=== PATIENT | male | born 1930 | race Caucasian/White ===

== ENCOUNTER → 2016-04-30 | Outpatient (CLI) | payer MEDICARE ==
[~2016-04-30] MED LIST: CALCIUM 600 +1 EAC6 PO; CYCLOSPORINE PO; DELTASONE10 MG PO; DELTASONE20 MG PO; DELTASONE5 MG PO; FISH OIL 1,0001 EAC1 PO; LASIX40 MG PO; LIPITOR80 MG PO; MAG-OX-400(241400 MG PO; MULTI VITAMIN1 EACH PO; NACL TABS1 GM PO; NEORAL25 MG PO; NITROSTAT0.4 MG SL; NORVASC10 MG PO; RAMIPRIL2.5 MG PO; TENORMIN100 MG PO; TYLENOL EXTRA500 MG PO; ZAROXOLYN5 MG PO
[2016-04-30 12:46] LABS: PROTIME 10.3 SECONDS (9.6-11.1)
== END | disposition disaster alternative care site (69) ==
LOC: GOPD 04-27 16:00
PROVIDERS: Internal Medicine Nephrology
PROC: 0TB03ZX Excision of Right Kidney, Percutaneous Approach, Diagnostic (ICD-10-PCS; principal; 2016-04-30)
DX: R31.9 Hematuria, unspecified (principal); R80.9 Proteinuria, unspecified
CPT/HCPCS: J2001; J2250; J3010

== ENCOUNTER 2016-06-13 12:00 | Observation (INO) | payer MEDICARE ==
[~2016-06-13] VITALS: Ht 160 cm; Wt 79.5 kg
--- NOTE | ~2016-06-13 | HP ---
PATIENT'S NAME: DAYANA DE LA CRUZ [facility] AGE: 85 Y [address] ROOM: [address] [place], [place] [address] [facility] ADMIT DATE: 06/13/2016 History & Physical DISCHARGE DATE: FAMILY PHYSICIAN: Prakash Orosco MD ATTENDING PHYSICIAN: WON GARZA DATE OF SERVICE: CHIEF COMPLAINT: Hyponatremia acute on chronic (asymptomatic). HISTORY OF PRESENT ILLNESS: This is an 85-year-old male who is transferred from the office for admission for management of acute on chronic hyponatremia, which he is asymptomatic. The story is that the patient had a kidney biopsy performed in April 2016 and the patient was diagnosed with focal segmental glomerulosclerosis and followed by lion trainer Dr. Soto, is being treated with prednisone and cyclosporine. At that time, the kidney function has improved from 2.8 to 1.8 and the proteinuria has also decreased significantly. At that time, the patient was also on aggressive diuretic regimen initially and fluid status had improved significantly and the patient was on Lasix 20 mg p.o. b.i.d. The patient's weight at that time has also improved from 217 pounds down to 177 pounds. However, for the last few days, the patient has noticed a decrease in urine output, but he denies any worsening dyspnea and he occasionally felt some lightheadedness upon standing for the last few days, but he did not pass out. His oral intake has also been poor recently. On June 11, 2016, the patient went for followup with Dr. Soto in the office and blood pressure at that time was 130/70 and dropped down to 104/60 upon standing. Sodium at that time was 133 one month earlier before that visit and it dropped down to 120 on June 11, 2016 in the office visit. Labs from his PCP office back in June 08, 2016 was 122. The patient was asymptomatic at all times. On examination at the office on June 11, 2016, the patient appeared to be dry with dry oral mucosa and likely was probably a bit over diuresed in addition to poor oral intake with positive orthostatic vital sign. Therefore, the patient received 1 L of normal saline in office at that time and sodium was checked and dropped from 122 to 118 today. The patient remained asymptomatic. Because of the acute on chronic hyponatremia now down to 118, the patient was admitted to the hospital for further evaluation and management of acute on chronic asymptomatic hyponatremia. The patient denies any chest pain and occasionally has exertional dyspnea but has not worsened much lately. REVIEW OF SYSTEMS: As mentioned in the history of present illness. All other systems reviewed and negative except those mentioned in the history of present illness. PATIENT'S NAME: DAYANA DE LA CRUZ [facility] AGE: 85 Y [address] ROOM: [place] [address] [facility] ADMIT DATE: 06/13/2016 History & Physical DISCHARGE DATE: FAMILY PHYSICIAN: Prakash Orosco MD ATTENDING PHYSICIAN: WON GARZA PAST MEDICAL HISTORY: 1. Hypertension. 2. Hyperlipidemia. 3. Obesity. 4. Coronary artery disease status post 3-vessel open heart surgery bypass in 2006. 5. Childhood history of Bright disease. 6. 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 7. History of malignant colon cancer status post ostomy according to the records. 8. History of aortic valve stenosis. ALLERGIES: CELEBREX WHICH CAUSES DIARRHEA; ELAVIL UNKNOWN REACTION; HYDROCODONE CAUSES NAUSEA, VOMITING, AND DIZZINESS; AND DARVOCET UNKNOWN REACTION. HOME MEDICATIONS: Currently is being reconciled. SOCIAL HISTORY: The patient was a former cigarette smoker about one pack per day for 35 years but he quit in 1977. He denies any alcohol or any illegal drug use. PAST SURGICAL HISTORY: 1. Status post kidney biopsy in April 2016 diagnosed with focal segmental glomerulosclerosis. 2. Coronary artery disease status post open heart surgery bypass in 2006. 3. Status post cholecystectomy. 4. History of malignant neoplasm of colon status post ostomy according to the medical records. FAMILY HISTORY: Father had myocardial infarction at age 60s and the mother had diabetes and also myocardial infarction at age 80s. PHYSICAL EXAMINATION: VITAL SIGNS: At the time of my dictation, temperature 97.5, blood pressure 123/72, heart rate 95, respirations 18, saturation 94% on room air. GENERAL APPEARANCE: Alert and oriented x3, in no acute distress. HEENT: Pupils equally round and reactive to light. Extraocular muscles intact. Anicteric sclerae. Nasal turbinates are normal bilaterally. Moist oral mucosa. NECK: No JVD. CARDIOVASCULAR: Normal S1 and S2. Regular rate and rhythm. 2/6 intensity murmur is heard. He has a history of aortic stenosis. No rubs. No gallops. PATIENT'S NAME: DAYANA DE LA CRUZ [facility] AGE: 85 Y [address] ROOM: [id number] [place], [place] [address] LOCATION: [facility] ADMIT DATE: 06/13/2016 History & Physical DISCHARGE DATE: FAMILY PHYSICIAN: Prakash Orosco MD ATTENDING PHYSICIAN: WON GARZA RESPIRATORY: Clear. ABDOMEN: Obese, soft, nontender, nondistended, normal bowel sounds, no hepatosplenomegaly. EXTREMITIES: +1 bilateral pitting edema in bilateral lower extremities. NEUROLOGICAL: Grossly nonfocal. SKIN: No ulcer, no rash, no cyanosis. MUSCULOSKELETAL: No joint pain. No muscle pain. Range of motion intact. LABORATORY DATA: The basic metabolic panel will be drawn after the hypertonic solution is finished per Nephrology recommendation. Sodium 118 today in the office on June 13, 2016. CBC will be drawn together with the basic metabolic panel once the hypertonic solution is finished. Currently, urinalysis is performed, showed negative leukocyte, 2 to 5 white blood cells, negative nitrite, negative bacteria, urine osmolarity is 307, urine sodium 47. IMAGING STUDY: Troponins are none. ASSESSMENT AND PLAN: 1. Acute on chronic asymptomatic hyponatremia: Likely is hypovolemic hyponatremia likely secondary to over diuresis. I have already spoken to the lion trainer, Dr. Soto. The plan will be to start hypertonic solution 3% 50 mL/hour for 6 hours, and then before starting the solution, we will be checking a urine analysis and urine osmolarity with urine electrolytes before and after the hypertonic solution. After the hypertonic solution is finished, we will be checking a renal panel and osmolality and call Dr. Soto directly for results for further recommendation. We will be holding the prednisone and also the cyclosporine. We will have a total fluid restriction to less than 1 L per day. The patient is asymptomatic. The goal of the sodium should be around 125 to 126 after 3% NaCl. Further plan depends on clinical course and per Nephrology. We will be checking another renal panel in the morning as well. 2. Regarding his chronic kidney disease stage 3-4: Basic metabolic panel will be checked after the infusion of the hypertonic solution. 3. Regarding his hypertension: We will hold the medication for now which includes Lasix and metolazone as well as ramipril given that we are trying to hydrate the patient. Follow up with nephrology when to resume the diuretics and ACEI. 4. Regarding his coronary artery disease status post coronary artery bypass PATIENT'S NAME: DAYANA DE LA CRUZ [facility] AGE: 85 Y [address] ROOM: [id number] [place] [id number] [facility] ADMIT DATE: 06/13/2016 History & Physical DISCHARGE DATE: FAMILY PHYSICIAN: Prakash Orosco MD ATTENDING PHYSICIAN: WON GARZA grafting in 2006: No active issue. No chest pain. Continue Lipitor. 5. Regarding his chronic kidney disease stage 3-4 secondary to focal segmental glomerulosclerosis: We will be holding the prednisone and holding the cyclosporine per Nephrology until sodium and kidney function are checked and we will resume per lion trainer's decision. 6. The patient will be having cardiac diet and also fall precaution. 7. Deep vein thrombosis prophylaxis: The patient will be getting heparin subcu 3 times a day. Time spent on the day of admission 40 minutes including chart review, interviewing the patient, addressing all the questions the patient had, examining the patient, and going over the plan of care with the patient and the nurses. WON GARZA MD CC/modl /[id number]: [id number] T: [id number] HISTORY & PHYSICAL
--- NOTE | ~2016-06-13 | CON ---
PATIENT'S NAME: DAYANA DE LA CRUZ [facility] AGE: 85 Y [address] ROOM: [address] [place], [place] [address] LOCATION: [facility] ADMIT DATE: 06/13/2016 Consultation DISCHARGE DATE: FAMILY PHYSICIAN: Prakash Orosco MD ATTENDING PHYSICIAN: GEORGE GARZA DATE OF CONSULTATION: 06/13/2016 REFERRING PHYSICIAN: George Garza MD REASON FOR CONSULTATION: Acute on chronic hyponatremia. HISTORY OF PRESENT ILLNESS: An 85-year-old male with history of hypertension; hyperlipidemia; obesity; coronary artery disease, status post 3-vessel CABG in 2006; and a childhood history of Bright disease; and recently diagnosed FSGS, currently on steroid and cyclosporine, admitted with acute on chronic hyponatremia. He was recently started on treatment for his FSGS with steroid and CNI, and his kidney function has improved significantly from 2.8-1.8 and now 1.68, and proteinuria has decreased significantly since we have started treatment. The patient was also on aggressive diuretic regimen. Initially, fluid status improved significantly and was on Lasix 20 mg twice a day along with metolazone 10 daily for volume control. Since he saw me in May, his sodium has started to drop slowly. During the lab visit in May, his sodium was 133, which was 122 on the lab done with his PCP couple of weeks back. On Saturday, when he came to my clinic, his sodium was 120. The patient appears to be dry on clinical exam, and the hyponatremia was thought to be hypovolemic hyponatremia from over-diuresis. Diuretic was placed on hold, and the patient was started on IV fluids for 1 L infusion in our Infusion Clinic. The patient was also instructed to increase his p.o. intake to at least 60-80 ounce a day. The patient came to my clinic today with a routine lab test. Sodium on this renal panel was found to be 118. However, the patient is currently asymptomatic. He is currently alert and oriented x3. Denied any focal neurological deficit. No chest pain, shortness of breath. Leg edema has improved significantly since he has been started on diuretic regimen. Body weight has improved from 217 to 177 pounds on his home scale, although that is slightly different than our clinic body weight recordings. He has no urinary symptoms including dysuria, urgency, hesitancy, nocturia. Review of his medication list did not show any medication that might be contributing to his hyponatremia. Overall, he is asymptomatic, but with significant hyponatremia found on routine lab studies. REVIEW OF SYSTEMS: GENERAL: No fever. No chills or rigor. HEENT: No sore throat. No sinus congestion. CVS: No chest pain. No exertional shortness of breath. No leg swelling. RESPIRATORY: No shortness of breath. No cough. No wheezing. GENITOURINARY: No pain with urination. No increased frequency. No nocturia. GASTROINTESTINAL: No abdominal pain. No abdominal distention. No nausea or vomiting. NEUROLOGIC: No weakness. No seizures. SKIN: No rash. No itching. ALLERGIES: No seasonal allergy. No hayfever. ENDOCRINE: No heat intolerance. No cold intolerance. PSYCHIATRIC: No sadness. No crying spells. No history of panic attack. PATIENT'S NAME: DAYANA DE LA CRUZ [facility] AGE: 85 Y [address] ROOM: [place] [address] [facility] ADMIT DATE: 06/13/2016 Consultation DISCHARGE DATE: FAMILY PHYSICIAN: Prakash Orosco MD ATTENDING PHYSICIAN: GEORGE GARZA PAST MEDICAL HISTORY: 1. Hypertension. 2. Hyperlipidemia. 3. Obesity. 4. Coronary artery disease, status post CABG. 5. Recently diagnosed FSGS, currently on prednisone and cyclosporine. PAST SURGICAL HISTORY: CABG in 2006. FAMILY HISTORY: History of diabetes in mother, colon cancer in sister, and CVA in brother, paternal grandmother, and paternal aunt. SOCIAL HISTORY: Former smoker. Occasional alcohol abuse. No history of IV drug use. ALLERGIES: CELEBREX, ELAVIL, HYDROCODONE, AND DARVOCET-N. CURRENT MEDICATIONS: 1. Atorvastatin 80 mg p.o. daily. 2. Cyclosporine 100 mg twice daily. 3. Lasix 20 mg twice a day which is being on hold since Saturday. 4. Metolazone 5 mg daily. 5. Nitroglycerin 0.4 mg sublingually p.r.n. 6. Prednisone 80 mg daily. 7. Ramipril 2.5 mg p.o. daily. PHYSICAL EXAMINATION: VITALS SIGNS: Blood pressure 110/64, pulse 87, respiratory rate 18, afebrile, saturating at 97% to 98% on room air. GENERAL: Not in apparent distress. HEAD: Dry mucous membrane. Bilateral PERRLA EOMI. NECK: Flat JVP. No thyromegaly or lymphadenopathy. CVS: S1 and S2 normal, regular rate and rhythm. No murmur, rub, gallop. CHEST: Bilateral air entry equal. No wheeze or rales. ABDOMEN: Soft, nontender, nondistended. Bowel sounds present. EXTREMITIES: No cyanosis, clubbing, jaundice. No dependent edema. MUSCULOSKELETAL: No limitation of range of motion. SKIN: No pallor, cyanosis, icterus. STORE CLERK CHECKER: Alert and oriented x3. No gross findings. LABORATORY STUDIES: Renal panel done on June 13, 2016, sodium 118, glucose 180, BUN 43, calcium 8.4, potassium 3.4, creatinine 1.68, chloride 82, bicarbonate 30. Albumin 2.6. Phosphorus 2.2. UA done on June 11, 2016, shows specific gravity of 1.015, 1+ protein, trace blood, 3-5 rbc's, and 0-5 wbc's per high-power field. Negative glucose, ketones, bilirubin, nitrite, leukocyte esterase. Last CBC done in my clinic was in May 2016: WBC 7.1, hemoglobin 15.9, platelets 252.PATIENT'S NAME: DAYANA DE LA CRUZ [facility] AGE: 85 Y [address] ROOM: [place] [address] LOCATION: [facility] ADMIT DATE: 06/13/2016 Consultation DISCHARGE DATE: FAMILY PHYSICIAN: Prakash Orosco MD ATTENDING PHYSICIAN: GEORGE GARZA ASSESSMENT AND PLAN: 1. Hyponatremia, possibly hypovolemic hyponatremia secondary to over diuresis versus drug induced, however, no contributory drug found on that medication list other than MITZI inhibitor, prednisone, and cyclosporine all of which were started last month. The patient got 1 L of normal saline bolus on last clinic visit without any significant improvement and actually deterioration of sodium level. We would like to give 3% sodium chloride about 300 mL over 6 hours. We will check UA, urine osmolality, and urine lytes now, and after completion of the sodium chloride infusion, we will repeat the renal panel and osmolality after the sodium chloride infusion. We will place the patient on fluid restriction of 1.1 L per day for now. Once we have the urine studies, we will decide about how stringent the total fluid restriction should be. Importantly total fluid restriction includes anything which is liquid or anything that can melt into liquid. 2. Focal segmental glomerulosclerosis, on cyclosporine and steroids. In the context of severe hyponatremia, we will hold the cyclosporine and steroids for today, and we will restart it back tomorrow. The patient's creatinine is strongly improving since he has been started on medication so as the proteinuria. We would like to get a protein creatinine ratio today to establish the improvement since we have started treatment. 3. Chronic kidney disease stage 3. The patient's creatinine was 2.8 when he first saw me and now the creatinine is down to 1.68, although he has mentioned some decreased urine output over the weekend, but since we have stopped the diuretic and started to hydrate, the patient's urine output has improved significantly from there. However, we will strictly monitor the intake and output and daily standing weight. 4. Coronary artery disease, status post coronary artery bypass graft. Currently asymptomatic. We will continue nitroglycerine as p.r.n. basis along with atorvastatin 80 mg p.o. daily. Thank you for allowing me to participate in this patient's care. We will closely monitor the patient's progress along with you. BRITT BRAVO MD /modl /[id number] d: 06/13/[id number] t: 06/14/16 1239, CONSULTATION REPORT
--- NOTE | ~2016-06-13 | DS ---
PATIENT'S NAME: DAYANA DE LA CRUZ [facility] AGE: 85 Y [address] ROOM: [address] [place], [place] [address] LOCATION: [facility] ADMIT DATE: 06/13/2016 Discharge Summary DISCHARGE DATE: 06/14/2016 FAMILY PHYSICIAN: Prakash Orosco MD ATTENDING PHYSICIAN: George Starkey FINAL DIAGNOSES: 1. Hyponatremia, hypovolemic in nature. 2. Acute kidney injury on stage III chronic kidney disease. 3. Focal segmental glomerulosclerosis. 4. Essential hypertension. 5. Coronary artery disease. Please see the history and physical dictated by Dr. Starkey and consultation provided by Dr. Soto. LABORATORY DATA: On admission, sodium 126, at discharge 130; potassium on admission 2.9, at discharge 3.3; BUN on admission 49, at discharge 42; creatinine on admission 1.8, at discharge 1.4. Magnesium 1.8. White blood cell count , hematocrit 36.1, platelet count 149. Urinalysis showed 2 to 5 whites, 0 to 2 reds, 50 glucose, negative for protein. HOSPITAL COURSE: The patient was admitted from Dr. Soto's office with significant hyponatremia and acute kidney injury. He was admitted to the floor. He was placed on 3% saline. His renal function was adjusted. His doses of prednisone and cyclosporine for the focal glomerulosclerosis were adjusted. He was placed on a fluid restriction. He did respond nicely to IV fluids with a reduction in his creatinine and a rise in his sodium. He did require replacement of his potassium on admission. On the second hospital day, studies were better, but he remained hypokalemic and so he was given potassium replacement IV. He was restarted on his home medications, and it was felt that he was stable for discharge to home. He is discharged on 1.2 L per day fluid restriction. He is to follow up with Dr. Soto on 06/21/2016. MEDICATIONS: 1. Lipitor 80 mg daily. 2. Cyclosporine 75 mg twice daily, this is a dose change. 3. Lasix 20 mg daily. 4. Ramipril 2.5 mg daily. 5. Magnesium oxide 400 mg twice daily. 6. Prednisone 60 mg daily, this is a dose change. 7. Tylenol 1000 mg twice daily as needed. 8. Nitrostat 0.4 mg p.r.n. chest pain. 9. Multivitamin daily. 10. Fish oil 1000 mg daily. 11. Calcium with vitamin D 1 tab daily. PATIENT'S NAME: DAYANA DE LA CRUZ [facility] AGE: 85 Y [address] ROOM: [place] [address] [facility] AD[facility] DATE: 06/13/2016 Discharge Summary DISCHARGE DATE: 06/14/2016 FAMILY PHYSICIAN: Prakash Orosco MD ATTENDING PHYSICIAN: George Starkey This was discussed with he and his son and they did voice understanding. DALJIT MA MD LAW/modl /[id number] CC: MD Prakash Mata MD d: 06/15/16 0410 t: 06/15/16 1827, DISCHARGE SUMMARY
[~2016-06-13 12:00] MED LIST changes: -CYCLOSPORINE PO; -DELTASONE10 MG PO; -DELTASONE20 MG PO; -DELTASONE5 MG PO; -MAG-OX-400(241400 MG PO; -NACL TABS1 GM PO; -NEORAL25 MG PO; -RAMIPRIL2.5 MG PO
--- NOTE | 2016-06-13 13:51 | NUR ---
Pt is 85 y/o male admit for hyponatremia for hospitalist. Pt alert and oriented x 3. Allergies to Darvocet,hydrocodone,celebrex,elavil. Red and yellow bracelet. Hx htn,hypercholest,CABG,diverticulitis,arthritis,gerd, hiatal hernia. Pt resides at home with his . Pt went to DR office today and had lab work, sent here for admission. Pt originally saw his family Dr last Saturday and was found to be dehydrated and received some IV fluids and was sent home.
[2016-06-13] MEDS ORDERED: RAMIPRIL2.5 MG PO (14:19)
[2016-06-13] MEDS ORDERED: DELTASONE20 MG PO (14:20)
[2016-06-13] MEDS ORDERED: CYCLOSPORINE PO (14:20)
[2016-06-13 14:49] LABS: BILIRUBIN URINE NEGATIVE (NEGATIVE); BLOOD URINE 10 /UL (NEGATIVE); COLOR URINE YELLOW (YELLOW); GLUCOSE URINE NEGATIVE (NEGATIVE); KETONE URINE NEGATIVE (NEGATIVE); LEUKOCYTES URINE NEGATIVE /UL (NEGATIVE); NITRITE URINE NEGATIVE (NEGATIVE); PROTEIN URINE NEGATIVE (NEGATIVE); TURBIDITY URINE CLEAR (CLEAR); UROBILINOGEN URINE 1 mg/dL (NORMAL)
[2016-06-13 15:55] LABS: BACTERIA URINE NEGATIVE (NEGATIVE); EPITHELIAL URINE 0-2 #/HPF (NEGATIVE); RBC URINE RARE #/HPF (NEGATIVE)
--- NOTE | 2016-06-13 16:51 | NUR ---
A&O-FORGETFUL. 1PA GB/WALKER. LS CLEAR. CHRONIC N/T. BS ACTIVE BM 06/12. VD X3. NO C/O PAIN. SMALL EMESIS X1 PT CLAIMED HE CHOCKED ON [employer] ST CONSULT? IV TO L FA 3% SOLUTION X6 HOURS UNTIL 194 THEN RECHECK RENAL AND UA. RENAL/CARDIAC DIET. 1000ML FLUID RESTRICTION. L LEG ELEVATED SHOE HX OF FX'S INFECTION AND BONE LOSS TO THAT L ANKLE.
[2016-06-13 20:41] LABS: BASOPHIL % 0.1 %; HEMATOCRIT 36.1 % (33.0-50.0); HEMOGLOBIN 13.5 g/dL (11.0-16.0); IMMATURE GRANULOCYTE # 0.1 K/uL (0.0-0.3); IMMATURE GRANULOCYTE % 0.9 %; LYMPHOCYTE # 0.5 K/uL (0.8-4.0); LYMPHOCYTE % 3.9 %; MCH 32.4 pg (27.0-34.0); MCHC 37.4 gm/dL (32.0-36.5); MCV 86.6 fl (83.0-98.0); MONOCYTE # 1.4 K/uL (0.0-1.0); MONOCYTE % 10.4 %; MPV 10.4 fl (9.4-12.4); NEUTROPHIL # (ANC) 11.4 K/uL (1.4-9.0); NEUTROPHIL % 84.7 %; NRBC % 0 /100WBC (0-0.00); PLATELET COUNT 149 K/uL (150-450); RBC 4.17 M/uL (3.50-5.50); RDW-CV 11.7 % (11.9-14.6); WBC 13.5 K/uL (4.0-11.0)
[2016-06-13 20:51] LABS: ALBUMIN 2.3 gm/dL (3.5-5.0); ANION GAP 11.9 (10.0-19.0); CALCIUM 7.8 mg/dL (8.5-10.5); CREATININE 1.8 mg/dL (0.6-1.3); PHOSPHORUS 1.4 mg/dL (2.5-4.9); POTASSIUM 2.9 mMol/L (3.7-5.1)
[2016-06-13 21:52] LABS: BILIRUBIN URINE NEGATIVE (NEGATIVE); BLOOD URINE NEGATIVE /UL (NEGATIVE); COLOR URINE YELLOW (YELLOW); GLUCOSE URINE 50 mg/dL (NEGATIVE); KETONE URINE NEGATIVE (NEGATIVE); LEUKOCYTES URINE NEGATIVE /UL (NEGATIVE); NITRITE URINE NEGATIVE (NEGATIVE); PROTEIN URINE NEGATIVE (NEGATIVE); TURBIDITY URINE CLEAR (CLEAR); UROBILINOGEN URINE 1 mg/dL (NORMAL)
--- NOTE | 2016-06-14 04:43 | NUR ---
A/O. HR 70-90s. SBP 100-110. AFEBRILE. ROOM AIR. REPLACED NA IV. REPLACED KCL IV AND PO. DENIES PAIN. VOIDS PER URINAL. BMx1. 1A GAITBELT CANE.
[2016-06-14 08:58] LABS: ANION GAP 10.3 (10.0-19.0); CREATININE 1.4 mg/dL (0.6-1.3); MAGNESIUM 1.8 mg/dL (1.8-2.6); POTASSIUM 3.3 mMol/L (3.7-5.1)
[2016-06-14 08:59] LABS: PHOSPHORUS 1.5 mg/dL (2.5-4.9)
--- NOTE | 2016-06-14 12:00 | NUR ---
Introduced self and CM role to Eliezer. He tells me that he lives at home in [facility] with his and he is planning on returning there when medically cleared to do so. He does his own medicatios at home and gets them filled at [facility]. States he will continue to do this once he goes home. 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 I did review his chart and in doing so, noticed that he was observations status, so I did go over the MATTSON with him and he did sign it. I placed a copy in his chart as well as gave him a copy. He denied any questions about the MATTSON or his observation status. I let him know that I had talked with nursing before coming into the room and she tells me that he might go home later today or tomorrow. His doesn't drive, so he tells me that he will have one of his sons come and pick him up whenever it is time to dismiss. He denies any additional needs for HHC or DME. He uses a cane at baseline, it is up in his room now, and he tells me that is all he needs or uses at this point. No other questions, needs or concerns. Will continue to follow and assist.
[2016-06-14] MEDS ORDERED: NEORAL25 MG PO (15:54)
[2016-06-14] MEDS ORDERED: MAG-OX-400(241400 MG PO (16:18)
--- NOTE | 2016-06-14 17:14 | NUR ---
Shift summary: Patient alert and oriented x 3. VSS. PVC's. 1+ edema in bilateral lower extremities and bilateral upper extremities. Lungs clear and diminished. 40 meq IV potassium given today. 2 g IV mag sulfate given today. Cyclosporine and magnesium added to patients daily medications. Total intake of 1030 mL; total output of 1130 mL. Patient discharged to son's car at 1722.
--- NOTE | 2016-06-14 19:10 | NUR ---
Patient dismissed to home with son per personal car. Transferred to car by wheelchair by student nurse. RN reviewed dismissal instructions with patient. Patient verbalized understanding. Gave information about new medications.
[2016-06-28] MEDS ORDERED: NACL TABS1 GM PO (10:28)
== END 2016-06-14 17:25 | disposition disaster alternative care site (69) ==
LOC: GPCU 12:06
PROVIDERS: Internal Medicine Nephrology; ADMIT Internal Medicine
DX: E87.1 Hypo-osmolality and hyponatremia (principal); N17.9 Acute kidney failure, unspecified; N18.4 Chronic kidney disease, stage 4 (severe); I12.9 Hypertensive chronic kidney disease with stage 1 through stage 4 chronic kidney disease, or unspecified chronic kidney disease; I25.10 Atherosclerotic heart disease of native coronary artery without angina pectoris; E66.9 Obesity, unspecified; E78.5 Hyperlipidemia, unspecified; Z85.038 Personal history of other malignant neoplasm of large intestine; Z87.891 Personal history of nicotine dependence; Z95.1 Presence of aortocoronary bypass graft
CPT/HCPCS: G0378; G0379; J1644; J3475; J3480; J7050; J7502; J7512

== ENCOUNTER → 2016-06-20 | Outpatient (CLI) | payer MEDICARE ==
[~2016-06-20] MED LIST changes: +CYCLOSPORINE PO; +DELTASONE10 MG PO; +DELTASONE20 MG PO; +DELTASONE5 MG PO; +MAG-OX-400(241400 MG PO; +NACL TABS1 GM PO; +NEORAL25 MG PO; +RAMIPRIL2.5 MG PO
== END ==
LOC: LGSMG 15:24
DX: N18.4 Chronic kidney disease, stage 4 (severe) (principal); E87.1 Hypo-osmolality and hyponatremia; E86.1 Hypovolemia

== ENCOUNTER → 2016-07-04 | Outpatient (CLI) | payer MEDICARE | END | disposition disaster alternative care site (69) | LOC: GOPD 06-28 | DX: R93.8 Abnormal findings on diagnostic imaging of other specified body structures (principal); R91.8 Other nonspecific abnormal finding of lung field | CPT/HCPCS: J2250; J3010; J7030 ==

== ENCOUNTER → 2016-07-11 | Outpatient (CLI) | payer MEDICARE | END | disposition disaster alternative care site (69) | LOC: LGSMG 14:21 | DX: N18.4 Chronic kidney disease, stage 4 (severe) (principal); R80.9 Proteinuria, unspecified ==

== ENCOUNTER 2016-07-12 17:31 | Inpatient (IN) | payer MEDICARE ==
[~2016-07-12] VITALS: Ht 160 cm; Wt 84.4 kg
--- NOTE | ~2016-07-12 | CON ---
[facility] AGE: 85 Y [address] ROOM: [place] [address] LOCATION: GPCU ADMIT DATE: 07/12/2016 Consultation DISCHARGE DATE: FAMILY PHYSICIAN: Prakash Orosco MD ATTENDING PHYSICIAN: Alix Alvarado DATE OF CONSULTATION: 07/14/2016 REFERRING PHYSICIAN: TARA MARTI MD CARDIOLOGY CONSULTATION REASON FOR CARDIOLOGY CONSULTATION: Elevated cardiac enzymes. HISTORY OF PRESENT ILLNESS: This is an 85-year-old male, who is currently under the care of Dr. Alvarado as well as the Hospitalist Service. He has a history of chronic numbness and decreased sensation to his lower extremities and presented for evaluation after his leg weakness increased to the point that he could not walk. He was found to have severe lumbar spinal stenosis. He also has a previous history of chronic lower extremity edema; dyspnea on exertion; chronic kidney disease, stage 3; coronary artery disease with a history of CABG x3 vessels 10 years ago; and diabetes mellitus. Plan for this patient in the future is to have surgery for his spinal stenosis. He also has a history of fungal pneumonia, but overall his acute kidney injury that was present on admission seems to be improving. The patient denies chest pain. PAST MEDICAL HISTORY: As listed in the HPI. PAST SURGICAL HISTORY: 1. Kidney biopsy in 2016. 2. Coronary artery bypass grafting x3 vessels in 2006. 3. Cholecystectomy. 4. Ostomy placement after colon cancer surgery. 5. Pulmonary aspergillosis. FAMILY HISTORY: The patient's father had a history of myocardial infarction at the age of 60; and his mother had diabetes mellitus, and also had a myocardial infarction at the age of 80. SOCIAL HISTORY: The patient is a former cigarette smoker. He smoked 1 pack of cigarettes per day for a total of 35 years. He quit smoking in 1977. He denies history of PATIENT'S NAME: [facility] AGE: 85 Y [address] ROOM: [place] [address] LOCATION: GPCU ADMIT DATE: 07/12/2016 Consultation DISCHARGE DATE: FAMILY PHYSICIAN: Prakash Orosco MD ATTENDING PHYSICIAN: Alix Alvarado alcohol or illicit drug use. CURRENT MEDICATIONS: 1. Heparin IV per ACS protocol. 2. Aspirin 81 mg p.o. daily. 3. Deltasone 20 mg p.o. daily. 4. Fish oil 1000 mg p.o. daily. 5. Lasix 40 mg p.o. twice daily. 6. Lipitor 80 mg p.o. daily in the evening. 7. Mucomyst 1200 mg p.o. twice daily. 8. Magnesium oxide 400 mg p.o. twice daily. 9. Sodium chloride tablets 1 g p.o. twice daily. 10. Neoral 25 mg p.o. twice daily. 11. Prinivil 5 mg p.o. daily. 12. VFEND 200 mg p.o. twice daily. 13. Levemir 5 units subcutaneous daily in the evening. 14. NovoLog subcutaneous on an aggressive sliding scale per a.c. and at bedtime Accu-Cheks. MEDICATION ALLERGIES: Cinnamon causing upset stomach. REVIEW OF SYSTEMS: Pertinent positive review of systems was listed in the HPI. All other review of systems evaluated and negative. DIAGNOSTICS: CMS evaluation shows a sodium of 146, potassium 3.5, BUN of 43, creatinine 1.3, and glucose of 102. Lipid evaluation showed a total cholesterol of 83, triglycerides 53, HDL of 52, and an LDL of 21. Cardiac enzyme trend shows a CPK of 1055, then 702, then 105; CK-MB of 17.3, then 9.6, then less than 0.5; and troponin I of 1.01, then 0.84, and finally less than 0.04. PHYSICAL EXAMINATION: VITAL SIGNS: Temperature 98.3, pulse 105, blood pressure 112/60, and O2 saturation 94% on room air. The patient weighs 83 kg. SKIN: [place], warm, and dry. EYES: Sclerae clear. No xanthelasmas. ENT: Oral mucosa is pink and moist. No jugular venous distention noted. Does have a faint right-sided carotid bruit. CHEST: Respirations are even and unlabored. Lung sounds are clear to auscultation. HEART: Regular rate and rhythm. Normal S1 and S2. No murmurs, rubs, or gallops. ABDOMEN: Soft and nontender but obese. PATIENT'S NAME: DAYANA DE LA CRUZ [facility] AGE: 85 Y [address] ROOM: [id number] [place], [place] [address] [facility] AD[facility] DATE: 07/12/2016 Consultation DISCHARGE DATE: FAMILY PHYSICIAN: Prakash Orosco MD ATTENDING PHYSICIAN: Alix Alvarado EXTREMITIES: Peripheral pulses palpable. No clubbing or cyanosis noted. Does have mild edema present. PSYCHIATRIC: Alert and oriented. Mood and affect are appropriate. IMPRESSION AND PLAN: Per Dr. Reyes: 1. Jva-IY-[id number] myocardial infarction. His enzymes are currently trending down and we will plan to proceed with selective coronary angiography with possible percutaneous intervention. The goal will be to possibly avoid stenting so that the patient can proceed with his back surgery. Plan of care as well as risks and benefits of the procedure were discussed between Dr. Reyes and the patient, his and his son. We will continue to monitor, evaluate, and treat as appropriate. Thank you for this consult. Thank you for allowing [facility] to interact in the care of this patient. STEPHANIE MILLER APRN FOR ESTHER-MD GIAN JON/gregorio /[id number] d: 07/14/16 1442 t: 08/06/16 1250, CONSULTATION REPORT
--- NOTE | ~2016-07-12 | OR ---
PATIENT'S NAME: DAYANA DE LA CRUZ [facility] AGE: 85 Y [address] ROOM: [address] [address] [facility] ADMIT DATE: 07/12/2016 OR/Procedure Report DISCHARGE DATE: FAMILY PHYSICIAN: Prakash Orosco MD ATTENDING PHYSICIAN: Alix Abel SURGEON: Alix Abel MD START UP SPECIALIST: Rosalba Joy. DATE OF PROCEDURE: 07/16/2016 PREOPERATIVE DIAGNOSIS: Lower extremity weakness secondary to severe lumbar spinal stenosis. POSTOPERATIVE DIAGNOSIS: Lower extremity weakness secondary to severe lumbar spinal stenosis. PROCEDURE PERFORMED: Bilateral laminectomy at L3-4 and L4-5. ANESTHESIA: General. ANESTHESIA PROVIDER: Andrea Smith CRNA. HISTORY: The patient is an 85-year-old male who presented with lower extremity weakness of sudden onset. Imaging studies showed severe spinal stenosis. Surgery was recommended. The above procedure, benefits, and risks were discussed with the patient and with his consent, he was brought to the operating room for surgery. PROCEDURE IN DETAIL: In the operating room, the patient was placed in a supine position. Anesthesia was induced. He was intubated. He was rolled to a prone position on a Walker table taking care to protect all pressure points. The incision was marked out. Local anesthesia was infiltrated. The #10 blade was used to open the incision and deepen it to the fascial layer. The Bovie was used to open the fascia and to expose the tips of the spinous processes. The paraspinous muscles were dissected off the spinous processes and laminae of L3, L4, and L5. Self-retaining retractors were adjusted and hemostasis was achieved. Intraoperative x-ray was obtained to verify that we were at the desired levels. Laminectomy was then carried out at L3, L4, and L5. Leksell rongeur was used to remove the mid part of the lamina. Kerrison rongeur was then used to continue the laminectomy. The canal was exceedingly stenotic and working very carefully, the dura was decompressed. The nerve root exits were also inspected and decompressed. At the end of the procedure, the dura and nerve roots could be seen clearly without any compression. The area was irrigated and bone wax was used to wax the edges of the laminectomy. The incision was closed with appropriate suture materials. PATIENT'S NAME: DAYANA DE LA CRUZ [facility] AGE: 85 Y [address] ROOM: [place] [address] [facility] ADMIT DATE: 07/12/2016 OR/Procedure Report DISCHARGE DATE: FAMILY PHYSICIAN: Prakash Orosco MD ATTENDING PHYSICIAN: Alix Abel Nylon was used to close the skin. A sterile dressing was applied. The patient was then rolled back to supine position. His anesthesia was reversed. He was extubated and taken to the recovery room to complete his recovery. I was present at and performed every aspect of this procedure, assisted at some stages by operating room nurses. There were no apparent intraoperative complications. Swabs, needles, and instruments were all accounted for at the end of the case. Estimated blood loss was less than 500 mL and there was no reason for blood transfusion. The patient's prognosis is still uncertain at this time given the degree of leg weakness he had before surgery. Hopefully, the laminectomy will provide him the opportunity to start regaining some function in his lower extremity. A rehab consult will also be necessary. ALIX ABEL MD CNO/modl /[id number] d: 07/21/16 0249 t: 07/30/16 1704, OPERATIVE SUMMARY
--- NOTE | ~2016-07-12 | CON ---
PATIENT'S NAME: [facility] AGE: 85 Y [address] ROOM: [place] [address] LOCATION: [facility] ADMIT DATE: 07/12/2016 Consultation DISCHARGE DATE: 07/30/2016 FAMILY PHYSICIAN: Prakash Orosco MD ATTENDING PHYSICIAN: Alix Alvarado REFERRING PHYSICIAN: Myron Roche MD REFERRING: Hospitalist Service. REASON FOR REFERRAL: Pleural effusion. HISTORY OF PRESENT ILLNESS: The patient is an 85-year-old gentleman admitted with neurologic issues. 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 I do not have records regarding that, however. I was asked to see him for pleural effusions. PAST MEDICAL HISTORY: Please refer to the admission history and physical exam. FAMILY HISTORY: Noncontributory. SOCIAL HISTORY: Noncontributory. REVIEW OF SYSTEMS: Noncontributory. PHYSICAL EXAMINATION: GENERAL: Awake, alert. Appears chronically ill and weak. HEENT: Unremarkable. NECK: Normal. CHEST: Hyperinflated lungs. Diminished breath sounds. HEART: Regular rate and rhythm. ABDOMEN: Nontender. EXTREMITIES: No clubbing or edema. ASSESSMENT: Pleural effusions. PLAN: We will check a chest x-ray in the morning. If effusions are large or increasing in size, we will consider tap. Would like to get records regarding PATIENT'S NAME: [facility] AGE: 85 Y [address] ROOM: [place] [address] LOCATION: [facility] ADMIT DATE: 07/12/2016 Consultation DISCHARGE DATE: 07/30/2016 FAMILY PHYSICIAN: Prakash Orosco MD ATTENDING PHYSICIAN: Alix Alvarado the Aspergillus. MD SWETHA JIANG/modl /[id number] d: 07/29/16 0939 t: 06/13/17 0826, CONSULTATION REPORT
--- NOTE | ~2016-07-12 | OR ---
PATIENT'S NAME: DAYANA DE LA CRUZ [facility] AGE: 85 Y [address] ROOM: [address] [place], [place] [address] LOCATION: GICU ADMIT DATE: 07/12/2016 OR/Procedure Report DISCHARGE DATE: 07/30/2016 FAMILY PHYSICIAN: Prakash Orosco MD ATTENDING PHYSICIAN: Alix Alvarado SURGEON: Enoc Chawla CRNA CERTIFIED JUVENILE PROBATION OFFICER: DATE OF PROCEDURE: 07/30/2016 PROCEDURE PERFORMED: Emergent intubation. DESCRIPTION OF PROCEDURE: I was called to a Code Blue situation on the patient. When I arrived to the room, the code team was present. There was no CPR being performed secondary to a positive femoral pulse. There was irregular labored breathing with small tidal volumes. The patient was unresponsive. The patient was being bagged mask valve per the attending physician when I arrived. When I went to the head of the bed, I noticed a large amount of emesis and green bile-like liquid coming from the patient's mouth and then all over the bed and the floor. I then suctioned the patient with a Yankauer, about 200 mL of the same green bile-colored fluid, and then I used a #3 MAC blade and DL the patient even though he was attempting spontaneous breathing. He was unresponsive, and so I did notice a large amount of that green fluid also percolating/gurgling in the trachea, and so I placed the Yankauer tube in the trachea and then also sucked approximately 100 mL of that green fluid from the lungs. I then placed an 8.0 endotracheal tube that was positive for end-tidal CO2 per respiratory therapy and bilateral chest rise with bilateral breath sounds present and a clear visualization of endotracheal tube placement. The patient was bag-mask assisted. There still was no sat at that point, and from the point of my intubation on, code status went as records show. ENOC CHAWLA CRNA TCV/modl /[id number] d: 07/30/161814 t: 05/31/17 1040, OPERATIVE SUMMARY
--- NOTE | ~2016-07-12 | ECHO ---
Transthoracic Echocardiography Report (TTE) Demographics Patient Name DAYANA DE LA CRUZ Date of Study 07/13/2016 L Patient Number [id number] Visit Number [id number] Date of 1930 Room Number [address] Gender Male Number Age 85 year(s) Referring Jaky Ny MD Behavioral Health Associate Kristen Anderson [facility] Physician Physician Interpreting Amy Blair Solid Waste Manager Physician Corina DING Supervising Ordering MD/MLP Physician Nurse Stress Neurosurgical Nurse Practitioner Conclusions Contractility Score Summary Summary Mild concentric left ventricular hypertrophy. Diastolic assessment reveals Grade I diastolic dysfunction. Septal hypokinesis Apical hypokinesis. Estimated EF: 55-60 %. Possible LVOT obstruction mildly elevated LVOT velocity The aortic valve is moderately sclerotic. Mild aortic stenosis. There is trivial aortic regurgitation. Ascending aorta is mildly dilated. IVC is mildly dilated. Blunted response to sniffing. Procedure Type of Study TTE procedure:2D Echocardiogram. Procedure Date Date: 07/13/2016 Start: 10:29 AM Study Location: Inpatient Portable Technical Quality: Adequate visualization Indications:Elevated Troponin. Appropriate Use Criteria: 9 Patient Status: Routine HR: 111 bpm BP: 126/60 mmHg M-Mode/2D Measurements LV Diastolic Dimension: 4.14 cm LV Systolic Dimension: 2.53 cm LV Septum Diastolic: 1.07 cm LV PW Diastolic: 1.27 cm AO Root Dimension: 2.4 cm Cardiac Output: 14.66 l/min AV Cusp Separation: 1.1 cm RV Diastolic Dimension: 3.48 cm LA volume: 68 ml LVOT: 2.3 cm RV Base: 3.87 cm LVOT VTI: 31.8 cm RV Mid: 3.24 cm LV Stroke volume: 132.05 ml Doppler Measurements AV Peak Velocity: 2.43 m/s MV Peak E-Wave: 0.91 m/s AV Peak Gradient: 23.62 mmHg MV Peak A-Wave: 1.74 m/s AV Mean Gradient: 14 mmHg MV E/A Ratio: 0.52 LVOT Peak Velocity: 1.7 m/s MV P1/2t: 75 msec TR Gradient:12.25 mmHg PV Peak Velocity: 1.27 m/s Estimated RAP:10 mmHg PV Peak Gradient: 6.45 mmHg Estimated RVSP: 22 mmHg Estimated PASP: 22.25 mmHg E' Septal Velocity: 0.05 m/s A' Septal Velocity: 0.09 m/s E' Lateral Velocity: 0.06 m/s A' Lateral Velocity: 0.11 m/s Findings Left Ventricle Mild concentric left ventricular hypertrophy. Diastolic assessment reveals Grade I diastolic dysfunction. Septal hypokinesis Apical hypokinesis. Estimated EF: 55-60 %. Right Ventricle Normal right ventricle structure and function. Left Atrium The left atrium is moderately dilated. Right Atrium Normal right atrial size. Mitral Valve Mild mitral annular calcification. Aortic Valve Possible LVOT obstruction mildly elevated LVOT velocity The aortic valve is moderately sclerotic. Mild aortic stenosis. There is trivial aortic regurgitation. Tricuspid Valve Mild tricuspid regurgitation by color Doppler. Pulmonic Valve Pulmonic valve is not well seen. Pericardial Effusion No evidence of pericardial effusion. Miscellaneous Ascending aorta is mildly dilated. IVC is mildly dilated. Blunted response to sniffing. Signature dtt: Nolberto Reyes dtd: 07/13/16 1029 Physician Self Edit
--- NOTE | ~2016-07-12 | CON ---
PATIENT'S NAME: [facility] AGE: 85 Y [address] ROOM: [place] [address] LOCATION: GICU ADMIT DATE: 07/12/2016 Consultation DISCHARGE DATE: 07/30/2016 FAMILY PHYSICIAN: Prakash Orosco MD ATTENDING PHYSICIAN: Alix Alvarado DATE OF CONSULTATION: 07/28/2016 REFERRING PHYSICIAN: Myron Roche MD REFERRING: Hospitalist Service. REASON FOR REFERRAL: Pleural effusions. HISTORY OF PRESENT ILLNESS: The patient is an 85-year-old with a complicated history. He was admitted with weakness. He also has a history of chronic renal insufficiency. He was also diagnosed with pulmonary aspergillosis by transthoracic needle biopsy of a lung mass. He was found to have small bilateral pleural effusions. PAST MEDICAL HISTORY: Refer to the admission history and physical exam. FAMILY HISTORY: Noncontributory. SOCIAL HISTORY: Lives independently. REVIEW OF SYSTEMS: As per HPI. PHYSICAL EXAMINATION: GENERAL: An elderly, chronically ill-appearing gentleman. ENT: Unremarkable. NECK: Normal. CHEST: Hyperinflated. LUNGS: Expiratory rhonchi heard. HEART: Regular. ABDOMEN: Distended. Tympanitic. Decreased bowel sounds. EXTREMITIES: No clubbing or edema. ASSESSMENT: Pleural effusions which by report are small to moderate. Recent history of PATIENT'S NAME: [facility] AGE: 85 Y [address] ROOM: [place] [address] LOCATION: [facility] ADMIT DATE: 07/12/2016 Consultation DISCHARGE DATE: 07/30/2016 FAMILY PHYSICIAN: Prakash Orosco MD ATTENDING PHYSICIAN: Alix Alvarado pulmonary aspergillosis although I have no details regarding that diagnosis and whether it has been treated or not. PLAN: We will check a chest x-ray in the morning and re-evaluate the effusions. We will try to obtain records regarding the pulmonary aspergillosis and whether it is being actively treated. MD SWETHA JIANG/modl /[id number] d: 07/30/16 1057 t: 08/14/16 0829, CONSULTATION REPORT
--- NOTE | ~2016-07-12 | ER ---
PATIENT'S NAME: DAYANA DE LA CRUZ [facility] AGE: 85 Y [address] ROOM: [address] [address] LOCATION: [facility] ADMIT DATE: 07/12/2016 ER/Outpatient Report DISCHARGE DATE: FAMILY PHYSICIAN: Prakash Orosco MD ATTENDING PHYSICIAN: Alix Alvarado TIME OF ADMIT: 1731 hours. The patient was initially seen by Dr. Gonzalez. HISTORY OF PRESENT ILLNESS: The patient was being evaluated for sudden onset of lower extremity weakness. Dr. Gonzalez checked him out with me with MRIs pending. MRI revealed moderate-to- severe spinal stenosis of the cervical and lumbar spine. Dr. Alvarado was called, reviewed the MRIs, felt confident that the anatomic lesions on the MRI were the cause of the patient's weakness and made arrangements to admit the patient. Other laboratory abnormalities included elevated troponin, markedly elevated BNP, and elevated blood sugar. The hospitalist was consulted to assist in the medical management. ASSESSMENT: 1. Acute lower extremity weakness secondary to his severe central canal stenosis. 2. Elevated troponin of uncertain significance. 3. Hyperglycemia. PLAN: Admit for neurosurgical management. ZANA PAGAN MD JDB/gregorio /[id number] d: 07/13/16509 t: 07/15/16 0600, OUTPATIENT REPORT
--- NOTE | ~2016-07-12 | PUL ---
PATIENT'S NAME: DAYANA DE LA CRUZ [facility] AGE: 85 Y [address] ROOM: [address] [place], [place] [address] LOCATION: GICU ADMIT DATE: 07/12/2016 Pulmonary DISCHARGE DATE: 07/30/2016 FAMILY PHYSICIAN: Prakash Orosco MD ATTENDING PHYSICIAN: Alix Alvarado ACTIVITY: Bedside Spirometry DATE OF PROCEDURE: July 27, 2016 REASON FOR EXAM: Pre-surgical evaluation RESULTS: Spirometry reveals decreased FVC at 0.85 which is 32% predicted, decreased FEV1 at 0.64 at 35% predicted, normal FEV1/FVC ratio at 74.9, the patient had very poor effort these numbers should be taken in consideration. PHYSICIAN INTERPRETATION: Spirometry suggestive of restrictive pattern but the patient was had very poor effort and the flow volume loop was not completely complete so I would take these numbers and consideration. Thank you for allowing me to participate in this patient. MD TYRESE HO/magda /[id number] dtt: 09/05/16 1007 Marichuy George S. dtd: 08/21/16 1438
--- NOTE | ~2016-07-12 | CATH ---
Cardiac Diagnostic Report Demographics Patient Name JONO ANNE Gender Male L Date of 1930 Age 85 year(s) Patient Number [id number] Date of Study 07/14/2016 Visit Number [id number] Room Number G6[address] [place] [id number] Ht 160.02 cm Wt 83.46 kg Referring Ana Luisa Cobos MD Primary Physician Physician Melchor Cartagena Performing Efstratiou Secondary Physician Physician Johnnie Arriaga MD Diagnostic Efstratiou Assisting Physician Physician Johnnie Arriaga MD Interventional Physician Emissions Inspector Physician Findings and Conclusions Diagnostic Findings and Conclusion Grafts to Circ and LAD are patient. RCA is [employer] and has collaterals. Flow from LAD and Circ - Possible source of enzyme release. Very torturous thoracic aorta and left subclavian. Incidental finding of 75% ostial left vertebral. Mild pulmonary HTN. Diagnostic Recommendations No need for PCI. Safe to proceed with back surgery. Procedure Description The patient was brought to the diagnostic cardiac catheterization-EP laboratory in the fasting, non-sedated state. Informed consent was obtained in the written and verbal form after the risks and benefits were explained. The patient had no further questions and agreed to proceed. The planned puncture-incision site(s) were shaved and prepped with ChloraPrep and draped in the usual sterile manner. Conscious sedation, supplemental oxygen, and pain control medications were delivered by a registered nurse under physician guidance. Surface ECG rhythm, blood pressure measurement, and pulse oximetry were monitored throughout the procedure. Arterial access. The access site was infiltrated with lidocaine. The vessel was entered with the Seldinger technique. A sheath was advanced into the vessel and used for catheter placement. Selective left coronary angiography. A catheter was advanced into the left coronary vessel ostium under Fluoroscopic guidance. Contrast was injected by hand. Images were obtained in multiple projections. Selective right coronary angiography. A catheter was advanced into the right coronary vessel ostium under fluoroscopic guidance. Contrast was injected by hand. Images were obtained in multiple projections. Selective SERNA graft angiography. A catheter was advanced into the left internal mammary graft ostium under fluoroscopic guidance. Contrast was injected by hand. Images were obtained in multiple projections. Selective SVG angiography. A catheter was advanced into the graft proximal anastomosis under fluoroscopic guidance. Contrast was injected by hand. Images were obtained in multiple projections. Left heart catheterization. A catheter was advanced across the aortic valve to the left ventricle under fluoroscopic guidance. Resting hemodynamics were obtained. Arterial artery hemostasis. Hemostasis was achieved. The patient was transferred to a regular nursing floor via cart accompanied by a nurse. The patient left the laboratory in stable condition. Diagnostic Cath Status: Urgent Procedure Procedure Type Diagnostic procedure:Angiography:, Right and Left Heart Cath, Coronary Angios w/Grafts Indications: Non-ST elevation HI. The procedure was explained in detail to the patient. Risks, complications and alternative treatments were reviewed. Written consent was obtained. Medications Reviewed with Patient prior to Procedure. Angiographic Findings Dominance: Right Cardiac Arteries and Lesion Findings LMCA: Normal (0% Stenosis). LAD: Abnormal.The 1st Diag appears abnormal. Lesion on Mid LAD: 95% stenosis . Lesion on 1st Diag: Ostial.80% stenosis . LCx: Abnormal.The 1st ob Elizabeth appears abnormal. The 2nd ob Elizabeth appears abnormal. Lesion on Mid CX: 80% stenosis . Lesion on 1st Ob Elizabeth% stenosis . Lesion on 2nd Ob Elizabeth% stenosis . RCA: Abnormal. Lesion on Mid RCA: 100% stenosis . Cardiac Grafts - There is a Vein graft that originates at the Aorta Left and attaches to the 1st Ob Elizabeth (The SVG graft is patent.). - There is a Vein graft that originates at the Aorta Left and attaches to the 2nd Ob Elizabeth (The SVG graft is patent.). - There is a SERNA graft that originates at the SERNA and attaches to the Mid LAD (The SERNA graft is patent.). Coronary Tree Procedure Data Procedure Date Date: 07/14/2016Start: 10:34 AMEnd: 11:47 AM Entry Locations - Retrograde Percutaneous access was performed through the Right Femoral artery (Primary location). A 6 Fr sheath was inserted. Hemostasis was successfully obtained using Angio-Seal STS PLUS (St. Ruben). Closure Comments: Dr. Ashton placement. - Antegrade Percutaneous access was performed through the Right Femoral vein. A 6 Fr sheath was inserted. Hemostasis was successfully obtained using Manual Compression. Closure Comments: regis. - Retrograde Percutaneous access was performed through the Left Radial artery. A 6 Fr sheath was inserted. Unsuccessful closure attempt was performed using: an R band. Hemostasis was successfully obtained using Mechanical Compression. Closure Comments: Mckay placement 13 ml air in band. Procedure Medications Order and Administration + + +-------+ + !Time !Medication !Dosage !Route ! + + +-------+ + !07/14/2016 !D5W 1000ml w/ 150 mEq Sodium Bicarb !83 !I.V. drip ! !10:40 AM ! !ml/hr ! ! + + +-------+ + !07/14/2016 !PAE Radial Cocktail: Heparin 5000 units, ! !I.A. ! !11:15 AM !Nitroglycerin 200mcg, Verapamil 3 mg ! ! ! ! !(ACC_3) ! ! ! + + +-------+ + Devices Used - A6 Fr. Balloon Wedge Catheterwas used for:Right heart cath. - A6 Fr. BS JL 4 Diag. Catheter. - A6 Fr. BS JR 4 Diag. Catheterwas used for:Right coronary angiography. - A5FR LCB DIAGNOSTIC CATH ([id number])was used for:SVG. - A6 Fr. BS JR 4 Diag. Catheterwas used for:SERNA.Unable to cannulate the vessel. - A6 Fr. JJ 3DRC Diag. Catheterwas used for:SERNA. - A6 Fr. BS JR 4 Diag. Catheterwas used for:SERNA.Unable to cannulate the vessel. Comments: thru left wrist. - A6 Fr. BS IMT Diag. Catheterwas used for:SERNA. Contrast Material - Isovue 22117 ml Fluoroscopy Time: Diagnostic: 17:06 minutes. Total: 17:06 minutes. Fluoroscopy Dose: Diagnostic: 1160 mGy. Total: 1160 mGy. Estimated Blood Loss: 25 ml. Medical History Performed Procedures and Imaging Results - No ACC stress or imaging studies were performed. Allergies - Other:(cinnamon). Risk Factors The patient risk factors include:prior CABG;hypertension, family history of premature CAD, last creatinine: 1.3 mg/dl, creatinine clearance: 49.04 ml/min, dyslipidemia and former tobacco use. Admission Data Admission Date: 07/12/2016 Admission Time: 10:27 PM Admit Source: Emergency department Insurance Payors: Medicare. Admission Medications + +------+------+ + + + + !Medication !Dosage!Times !Last !Last !Administered !Comments ! ! ! !Per !Delivery !Delivery ! ! ! ! ! !Day !Date !Time ! ! ! + +------+------+ + + + + !MITZI ! ! ! ! !Yes ! ! !Inhibitor ! ! ! ! ! ! ! !(any) ! ! ! ! ! ! ! + +------+------+ + + + + !Statin (any)! ! ! ! !Yes ! ! + +------+------+ + + + + Clinical Evaluation Leading to Procedure - The patient's CAD presentation was assessed as: Non-STEMI. - The patient's anginal syndrome during the past two weeks was assessed as: Class IV according to the [place] Cardiovascular Society Classification System (CCS). - The patient has been in a state of heart failure within the past two weeks. - The patient's heart failure status was assessed as NYHA Class II. 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 Snapshots Hemodynamics Condition: Rest O2 Consumption: Estimated: 220.78Heart Rate: 82 bpm Oxygen Saturation +--------+-----+----+ +---+ + !Location!pCO2 !pO2 !% Saturation !Hgb!O2 Content ! +--------+-----+----+ +---+ + !PA ! ! !55.7 ! ! ! +--------+-----+----+ +---+ + !AO ! ! !89.8 ! ! ! +--------+-----+----+ +---+ + !RA ! ! !55.6 ! ! ! +--------+-----+----+ +---+ + Pressures (mmHg) +-----+ + !Site !Pressure ! +-----+ + !RA !10/5 (1) ! +-----+ + !RV !34/0 ,5 ! +-----+ + !PCW !18/21 (16) ! +-----+ + !PA !37/10 (20) ! +-----+ + !AO !85/45 (62) ! +-----+ + !AO !96/53 (70) ! +-----+ + Cardiac Output +------+ + + + !Method!CO (l/min) !CI (l/min/m2) !SV (ml) ! +------+ + + + !Isabell !5.06 !2.7 !61.68 ! +------+ + + + Shunts Oxygen Values O2 Capacity 127.84 O2 Consumption 220.78 Flows (l/min) Qs 5.05 Qe/Qp 1 Qp 5.06 Qp/Qs 1 Qe 5.05 Vascular Resistance (dynes x sec x cm-5) + +-----+-----+----+----+---------+-------+ !CO method !TSVR !SVR !TPVR!PVR !TPVR/TSVR!PVR/SVR! + +-----+-----+----+----+---------+-------+ !Isabell !13.83!13.56!3.87!0.75!0.28 !0.06 ! + +-----+-----+----+----+---------+-------+ !Qp or Qs !13.86!13.58!3.87!0.75!0.28 !0.06 ! + +-----+-----+----+----+---------+-------+ Signatures dtt: Nolberto Reyes dtd: 07/14/16 1034 Physician Self Edit
--- NOTE | ~2016-07-12 | HP ---
PATIENT'S NAME: ELIEZER MCCOLLUM [facility] AGE: 85 Y [address] ROOM: [place] [address] LOCATION: GPCU ADMIT DATE: 07/12/2016 History & Physical DISCHARGE DATE: FAMILY PHYSICIAN: Prakash Orosco MD ATTENDING PHYSICIAN: Alix Alvarado DATE OF SERVICE: 07/12/2016 PATIENT IDENTIFICATION: Eliezer Mccollum is an 85-year-old male. PRESENTING COMPLAINT: Difficulty walking as a result of leg weakness. HISTORY OF PRESENT ILLNESS: The patient says "I lost control of my legs today." He had fallen three days ago in bathroom and had a hard time getting back up. On the day of admission, he was leaning against the wall and would have fallen if the wall had not been there. He also found he could not move his legs. He has always had a little bit of back pain for years, but the weakness is fairly recent. In April this year, he is started walking with a cane and then progressed to the point he was walking with a walker. The patient was brought to the emergency room on account of the fall and had an MRI of the lumbar spine done. MRI showed spinal stenosis and I was consulted to see the patient. The patient was recently evaluated for fungal pneumonia by infectious diseases, people. There is a note dated July 11, 2016 and patient was started on voriconazole 200 mg b.i.d. for the fungal infection. OTHER PAST MEDICAL HISTORY: Includes a three vessel coronary artery bypass. CURRENT MEDICATIONS: Documented on chart. ALLERGIES: DOCUMENTED ON THE CHART. FAMILY HISTORY: There is no family history relevant to present problems. PATIENT'S NAME: ELIEZER MCCOLLUM [facility] AGE: 85 Y [address] ROOM: [place] [address] LOCATION: GPCU ADMIT DATE: 07/12/2016 History & Physical DISCHARGE DATE: FAMILY PHYSICIAN: Prakash Orosco MD ATTENDING PHYSICIAN: Alix Alvarado SOCIAL HISTORY: The patient is . He is a nonsmoker. REVIEW OF SYSTEMS: A 10-point review of systems was carried out. The only abnormal finding was as described in the history of present illness. PHYSICAL EXAMINATION: GENERAL: On examination, the patient is an elderly male who was found lying on a gurney in the ER. VITAL SIGNS: Stable. NEUROLOGICAL: The patient is alert and able to follow commands. His speech is clear. Cranial nerves, no deficits seen. Motor examination, the patient has normal strength in his upper extremities. In his lower extremities, he had weakness as described below. Hip flexors where less than 3 on the right side and barely 3 on the left side. Quadriceps are 5 bilaterally. Dorsiflexors 5 on the right, 4 on the left. Plantar flexors 5 on the right, 3 on the left. The patient has had prior ankle surgery, this could influence the ankle movement hence the week dorsiflexor on the left side. EXTREMITIES: The patient has bilateral pitting edema. The edema extends up to his knee level. Gait not tested. RESPIRATORY: The patient is short of breath at bedside. As mentioned earlier. 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 CARDIOVASCULAR SYSTEM: His heart sounds are present on both sides. HEAD: His head is atraumatic. EYES AND EARS: No evidence of trauma. SKIN: No skin rashes or skin masses. REVIEW OF IMAGING STUDIES: The patient has had lumbar spine MRI performed. The MRI shows severe central canal stenosis at the L3-4 level. There is at least a moderate stenosis also at L4-5. Cervical spine MRI performed July 12, 2016 documented multilevel degenerative changes worse at C5-6 with moderate to severe central canal and bilateral foraminal stenosis. Thoracic spine MRI, mild degenerative changes with no significant canal or neural foraminal stenosis. ASSESSMENT: An 85-year-old male with bilateral lower extremity weakness. MRI scan shows severe spinal stenosis. The patient also has bilateral pitting pedal edema and shortness of breath, concerning for heart failure. MEDICAL DECISION MAKING: The patient had been admitted to the hospital. He will likely need decompression of his lumbar spine for the stenosis. He is being seen by PATIENT'S NAME: ELIEZER MCCOLLUM [facility] AGE: 85 Y [address] ROOM: [address] [place], [place] [address] [facility] ADMIT DATE: 07/12/2016 History & Physical DISCHARGE DATE: FAMILY PHYSICIAN: Prakash Orosco MD ATTENDING PHYSICIAN: Alix Alvarado internal medicine for his shortness of breath, and will also be seen by Pulmonology for the fungal infection. When the patient is stable from the medical standpoint, I will schedule his surgery. During the examination in the emergency room, the leg weakness actually showed some improvement to the point that the patient was now able to maintain some antigravity strength in his legs, but he was still quite weak. I will follow the patient while he is in hospital. MD SHAWANDA SMITH/modl /[id number] D: [id number] T: [id number] HISTORY & PHYSICAL
--- NOTE | ~2016-07-12 | CON ---
PATIENT'S NAME: DAYANA DE LA CRUZ [facility] AGE: 85 Y [address] 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 HISTORY OF PRESENT ILLNESS: This patient is an 85-year-old gentleman was seen by Dr. Loyola in the clinic on the July, for fungal pneumonia. 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 voriconazole 200 mg p.o. twice a day. The patient had a history of FSGS and kidney issues started on cyclosporine and prednisone then the patient had developed some hemoptysis just blood-streaked like sputum. CT scan done showed masslike consolidation. Due to concern for malignancy, underwent CT-guided biopsies, came back with fungus, the patient does not have any fever. Then, the patient came to the hospital, because of difficulty walking and leg weakness and seen by Dr. Alvarado and found to have spinal stenosis and status post L3-4, L4-5 lumbar laminectomy, which was done on July. Because of the fungal pneumonia, ID consultation was requested again, noted that, the patient did not fill the prescription as outpatient and voriconazole was actually started during this hospitalization, which was started on July, and the patient tolerated the medicine and also noted that several labs was done as outpatient showed that serum aspergillus galactomannan was elevated to 4.44, normal is less than 0.5. Also, Fungitell was done at that time, on 11 of July is greater than 500. Also, noted that on the 11 of July, the patient had elevated AST, ALT, which was unknown reason, and then which was repeated and today AST is 133, ALT 105, bilirubin and alkaline phosphatase is okay, and is actually AST, ALT is trending down. The patient still complains of some back pain; also, complains some cough and cough of mucus too, but no fever. PAST MEDICAL HISTORY: FSGS, kidney issue, currently on cyclosporine and prednisone, the dose was decreased to 25 mg, cyclosporine twice a day, per kidney specialist, by the request from Dr. Loyola before, and also has a history of dyslipidemia, high blood pressure. CURRENT MEDICATIONS: Current antibiotic on voriconazole 200 mg p.o. twice a day. PATIENT'S NAME: DAYANA DE LA CRUZ [facility] AGE: 85 Y [address] ROOM: [place] [address] [facility] ADMIT DATE: 07/12/2016 Consultation DISCHARGE DATE: FAMILY PHYSICIAN: Prakash Orosco MD ATTENDING PHYSICIAN: Alix Alvarado FAMILY HISTORY: Positive for diabetes and heart disease. SOCIAL HISTORY: Ex-smoker. REVIEW OF SYSTEMS: GENERAL: Fever negative. HEENT: Headache negative. PULMONARY: Cough positive, sputum positive. CARDIOVASCULAR: Chest pain negative. GI: Nausea, vomiting negative. MUSCULOSKELETAL: Joint pain negative and weakness positive. PHYSICAL EXAMINATION: VITAL SIGNS: Blood pressure 131/66, pulse rate 94, respirations 20, and temperature 97.9. No fever recently. GENERAL: In mild distress. HEENT: Conjunctivae pink. Sclerae not icteric. NECK: Supple. LUNGS: Mild rhonchi bilaterally. HEART: Regular rhythm and rate. ABDOMEN: Bowel sounds positive. No tenderness or rebound tenderness. BACK AND EXTREMITIES: Mild edema noted. SKIN: No rash noted. LABORATORY DATA: White blood cell 10.5, hemoglobin 8.2, and platelet 128. Chemistry BUN 58, creatinine 1.9, AST 133, ALT 105, bilirubin 1.1, and alkaline phosphatase 62. Blood culture done on 12 of July, no growth, and 11 of July, aspergillus galactomannan antigen from serum is positive 4.44, Fungitell at that time greater than 500 positive, and chest x-ray done on 12 of July show large area of irregular masslike opacity at the right hilum has increased in size since July,. 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 Clinically, he had a coughing and cough of mucus too and this time admitted with spinal stenosis, status post laminectomy done on July. PATIENT'S NAME: DAYANA DE LA CRUZ [facility] AGE: 85 Y [address] ROOM: [place] [address] LOCATION: GPCU ADMIT DATE: 07/12/2016 Consultation DISCHARGE DATE: FAMILY PHYSICIAN: Prakash Orosco MD ATTENDING PHYSICIAN: Alix Alvarado RECOMMENDATIONS: We will continue p.o. voriconazole 200 mg p.o. twice a day. I will check urine histoplasma antigen too just to make it complete and we will continue voriconazole and follow up to ID clinic in 2 weeks. At that time, we will repeat the voriconazole level and we will repeat imaging study too. MD MARI DEL ANGEL/gregorio /[id number] d: 07/19/16 0243 t: 07/19/16 1119, CONSULTATION REPORT
--- NOTE | ~2016-07-12 | CON ---
PATIENT'S NAME: DAYANA DE LA CRUZ [facility] AGE: 85 Y [address] ROOM: [id number] [place], [place] [address] LOCATION: GPCU ADMIT DATE: 07/12/2016 Consultation DISCHARGE DATE: FAMILY PHYSICIAN: Prakash Orosco MD ATTENDING PHYSICIAN: Alix Alvarado DATE OF CONSULTATION: 07/20/2016 REFERRING PHYSICIAN: TARA MARTI MD HISTORY OF PRESENT ILLNESS: This is a pleasant, 85-year-old male who was admitted on July 12, 2016, with increasing leg weakness secondary to spinal stenosis. The patient did undergo a decompression per Neurosurgery. During his hospitalization, he did undergo heart catheterization as well for non-STEMI. He does have acute kidney injury on chronic kidney disease as well, and Nephrology has been following. We were asked to see in consultation for the patient's anemia. On admission, the patient's hemoglobin was 10.1, with the highest being 12.2. Over the course of the hospitalization, the patient has received numerous blood products with the most recent hemoglobin check at 7.0. The patient denies any blood in his stool or evidence of blood loss. He did state that he underwent an upper endoscopy in the for "hiatal hernia stretching." He did also undergo a colonoscopy in October 2015 that he states was negative. The patient denies any acute abdominal pain, nausea, or vomiting. No melena stool or hematochezia. The patient also denies chest pain, chest pressure, or shortness of breath. 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 He denies any acute weight loss, fever, or chills at this time. 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 He also has spinal stenosis. PAST SURGICAL HISTORY: Kidney biopsy in 2016, coronary artery bypass grafting x3 vessels in 2006, cholecystectomy, ostomy placement after colon cancer surgery, and pulmonary aspergillosis. The patient did undergo an upper endoscopy a number of years ago as well as a colonoscopy completed in October 2015 that he states was negative. SOCIAL HISTORY: The patient is a former cigarette smoker as he smoked a pack of cigarettes per day for a total of 35 years, though quit in 1977. He denies any history of alcohol or illicit drug use. PATIENT'S NAME: DAYANA DE LA CRUZ [facility] AGE: 85 Y [address] ROOM: [id number] [place], [place] [address] LOCATION: [facility] ADMIT DATE: 07/12/2016 Consultation DISCHARGE DATE: FAMILY PHYSICIAN: Prakash Orosco MD ATTENDING PHYSICIAN: Alix Alvarado FAMILY HISTORY: The patient's father had a history of myocardial infarction at the age of 60. The patient's mother had diabetes mellitus and also myocardial infarction at the age of 80. He denies any gastrointestinal diseases or cancers to his knowledge. ALLERGIES: CINNAMON CAUSES UPSET STOMACH. CURRENT MEDICATIONS: Please refer to the medication administration record. REVIEW OF SYSTEMS: All point review of systems was completed, all were negative except for those identified in the History of Present Illness. PHYSICAL EXAMINATION: GENERAL: A pleasant, 85-year-old male, sitting in the chair, who appears to be in no acute distress. VITAL SIGNS: Temperature 97.8, pulse of 88, respirations of 17, blood pressure 107/57, and oxygen saturation is 96% on 2 L nasal cannula. SKIN: [place], warm, and dry. No jaundice. HEENT: Head is normocephalic and atraumatic. Pupils are equal, round, and reactive to light. Sclerae are clear, nonicteric. Oral mucosa is pink and moist. No thyromegaly. NECK: Soft and supple. CARDIOVASCULAR: Regular. Normal S1 and S2. RESPIRATORY: Respirations even and unlabored. Lungs clear to auscultation. ABDOMEN: Soft, round, nontender, and nondistended. Bowel sounds positive x4 quadrants. MUSCULOSKELETAL: No muscle weakness or atrophy. EXTREMITIES: No clubbing, cyanosis, or edema. NEUROLOGICAL: Grossly nonfocal. LABORATORY AND DIAGNOSTIC DATA: As stated above. On admission, the patient's hemoglobin was 10.1 with the highest being 12.0. The patient has received a few units of blood over his hospitalization, with most recent hemoglobin check at 7.0. White blood cell count of 8.7, hematocrit of 21.8, MCV is 92.8, platelets of 114. Chemistry panel includes a glucose of 160, BUN of 73, creatinine 2.5, sodium 143, potassium of 4.5, chloride of 104, and CO2 of 29. ASSESSMENT AND PLAN: Again, this is a pleasant, 85-year-old male who was admitted with leg weakness PATIENT'S NAME: DAYANA DE LA CRUZ [facility] AGE: 85 Y [address] ROOM: [place] [address] LOCATION: GPCU ADMIT DATE: 07/12/2016 Consultation DISCHARGE DATE: FAMILY PHYSICIAN: Prakash Orosco MD ATTENDING PHYSICIAN: Alix Alvarado secondary to spinal stenosis, status post decompression. The patient also has undergone a heart catheterization secondary to cardiac enzymes being elevated and non-ST elevation myocardial infarction. He is also under the care of Pulmonology and Infectious Disease for aspergillosis of the lung. We were asked to see in consultation for the patient's anemia. The patient, at this time, will undergo an upper endoscopy for further evaluation of possible gastrointestinal blood loss. Risks, benefits, and alternatives of the procedure were discussed per Dr. Kristina Avendano. Further recommendations to be given status post upper endoscopy. He did just recently undergo a colonoscopy, this will be placed on hold until further evaluation. Thank you for this consult. VANCE ASHLEY APRN FOR MD ELLA GAMEZ/malvinl /[id number] d: 07/21/16 1616 t: 08/17/16 0725, CONSULTATION REPORT
--- NOTE | ~2016-07-12 | CON ---
PATIENT'S NAME: DAYANA DE LA CRUZ [facility] AGE: 85 Y [address] ROOM: [id number] [place], [place] [address] LOCATION: GPCU ADMIT DATE: 07/12/2016 Consultation DISCHARGE DATE: FAMILY PHYSICIAN: Prakash Orosco MD ATTENDING PHYSICIAN: Alix Alvarado DATE OF CONSULTATION: 07/13/2016 REFERRING PHYSICIAN: TARA MARTI MD REASON FOR CONSULTATION: CKD and FSGS. HISTORY OF PRESENT ILLNESS: An 85-year-old male with history of hypertension, hyperlipidemia, obesity, coronary artery disease, status post three-vessel CABG in 2006, childhood history of Bright disease, recently diagnosed FSGS and currently on cyclosporine and steroid therapy, and recently diagnosed right upper lobe lung mass, status post CT-guided biopsy showing aspergilloma. Admitted with worsening lower extremities weakness. The patient was seen first in my Clinic about three months earlier with severe proteinuria and significant renal insufficiency. On biopsy, it has been shown that the patient has FSGS, possibly primary, and started on immunosuppressive therapy with high-dose steroid and cyclosporine, which resulted in rapid recovery of both proteinuria and renal function. However, afterwards, he did develop some hyponatremia and hemoptysis. Chest CT has been done to rule out further evaluation, which shows right upper lobe mass. CT-guided biopsy has been done, which showed some fungal elements, suspicion of aspergilloma. He has seen ID last week, and was recommended voriconazole treatment 200 mg p.o. b.i.d. for now. Cyclosporine dose has been modified in context of aspergilloma and voriconazole treatment; currently on 25 mg twice a day. We also did taper the dose of prednisone. Meanwhile, he has developed some weakness and unsteadiness of gait over the last few weeks, which is worse since Saturday. He had a fall on Saturday, but did not hit his head. Yesterday, he went to his work, but could not move after that. His family had to pick him up from there. He denied any bowel or bladder incontinence. He also complained of some numbness. He did complain of some back pain, which was present for a long time, but has not bothered him that much. He has had multiple MRIs of cervical, thoracic, and lumbar spine in the ER as per the Neurosurgery and Neurology. Possible explanation for this lower extremities weakness is spinal canal stenosis and not Guillain-[place] syndrome, and was planned for a surgical decompression. Regarding his kidney function, his creatinine today is 1.3, which is even below the most recent creatinine value of 1.7, which has been done a few days ago in my Clinic. He is otherwise doing well. No complaint of chest pain or shortness of breath. The BNP level is high, but chest x-ray does not show any congestion. He does not have any lower extremities swelling. He appears to be slightly tired and fatigued, but denied any fevers, chills, or rigor. He has not started voriconazole treatment yet, but he is aware of the diagnosis of the fungal ball.PATIENT'S NAME: DAYANA DE LA CRUZ [facility] AGE: 85 Y [address] ROOM: [id number] [place] [id number] [facility] ADMIT DATE: 07/12/2016 Consultation DISCHARGE DATE: FAMILY PHYSICIAN: Prakash Orosco MD ATTENDING PHYSICIAN: Alix Alvarado REVIEW OF SYSTEMS: GENERAL: No fever. No chills or rigor. HEENT: No sore throat. No sinus congestion. CVS: No chest pain. No exertional shortness of breath. No leg swelling. RESPIRATORY: No shortness of breath. No cough. No wheezing. GENITOURINARY: No pain with urination. No increased frequency. No nocturia. GASTROINTESTINAL: No abdominal pain. No abdominal distention. No nausea or vomiting. NEUROLOGIC: Lower extremities weakness as mentioned above. No seizures. SKIN: No rash. No itching. ALLERGIES: No seasonal allergy. No hayfever. ENDOCRINE: No heat intolerance. No cold intolerance. PSYCHIATRIC: No sadness. No crying spells. No history of panic attack. PAST MEDICAL HISTORY: 1. Hypertension. 2. Hyperlipidemia. 3. Obesity. 4. Coronary artery disease. 5. FSGS, on prednisone and cyclosporine. 6. Recently diagnosed right upper lobe mass. CT biopsy shows fungal elements, suspicion of aspergilloma. PAST SURGICAL HISTORY: CABG in 2006. FAMILY HISTORY: Diabetes in mother. Colon cancer in sister. CVA in brother, paternal grandmother, and paternal aunt. SOCIAL HISTORY: Former smoker of almost 24-kmpd-ghll history of smoking. Occasional alcohol abuse. No history of IV drug use. ALLERGIES: CELEBREX, ELAVIL, HYDROCODONE, AND DARVOCET-N. CURRENT MEDICATIONS: As per the chart. LABORATORY DATA: Lactate was 2.1. ProBNP is 10,000. Troponin of 1 and CPK of 1055. Hemoglobin was 12, WBC was 14.2, and platelets were 162. Sodium is 142, potassium is 3.6, chloride is 105, bicarbonate is 27, BUN is 41, creatinine is 1.3, glucose is 93, calcium is 8.8, magnesium is 1.9, ESR is 68, and A1c is 9.3. INR of 0.99. UA: Specific gravity of 1.010, pH of 6, 1+ turbidity, negative LE, negative nitrite, wbc of 0 to 2, rbc of 5 to 10, and negative for bacteria.PATIENT'S NAME: DAYANA DE LA CRUZ [facility] AGE: 85 Y [address] ROOM: [place] [address] LOCATION: GPCU ADMIT DATE: 07/12/2016 Consultation DISCHARGE DATE: FAMILY PHYSICIAN: Prakash Orosco MD ATTENDING PHYSICIAN: Alix Alvarado PHYSICAL EXAMINATION: VITAL SIGNS: Blood pressure was 130 to 140 over 60 to 70, pulse was 80, respiratory rate was 18, afebrile, and saturating 96% to 98% on room air. GENERAL: Not in apparent distress. HEAD: Moist mucous membranes. Bilateral PERRLA, EOMI. NECK: No JVD, thyromegaly or lymphadenopathy. CVS: S1 and S2 normal, regular rate and rhythm. No murmur, rub, gallop. CHEST: Bilateral air entry equal. No wheeze or rales. ABDOMEN: Soft, nontender, nondistended. Bowel sounds present. EXTREMITIES: No cyanosis, clubbing, jaundice. No dependent edema. MUSCULOSKELETAL: No limitation of range of motion. A 3/5 strength in bilateral lower extremities. SKIN: No pallor, cyanosis, icterus. 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 No gross findings. Cranial nerves are intact. No facial droop. No slurred speech. Babinski was negative. Sensation was slightly decreased in both feet, apparently chronic. Sensation was intact in bilateral upper extremity. Muscle strength is 3/5 in bilateral lower extremity and intact in upper extremity. No cerebellar sign. ASSESSMENT AND PLAN: 1. Bilateral lower extremity weakness, possibly secondary to spinal canal stenosis. Neurology and Neurosurgery are on board. Plan for decompression, but we do not know about the details of timing and date yet. Questionable benefit from IV steroids. We will defer that to the Primary team and Neurology or Neurosurgery about that. CPK was borderline elevated, and we do not believe steroid-induced myositis. 2. 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 The dose has been tapered in context of fungal ball in the lung, as well as voriconazole treatment currently on 25 b.i.d. and prednisone on the tapering dose with currently on 20 mg daily for five days, then 10 daily for five days, and then 5 daily to continue. Proteinuria has improved significantly in the recent past, but we will check the protein-creatinine ratio once proteinuria subsides. 3. 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 The patient has been seen by ID and has been started on voriconazole 200 mg b.i.d. We will restart the patient on 200 mg b.i.d. of voriconazole, but the patient has never started it yet. So, it would be a fresh start voriconazole treatment. 4. Hypertension. Blood pressure is adequately controlled on the current antibiotic regimen of MITZI inhibitor. We will continue the same dose. 5. Mildly elevated BNP and troponin, possibly secondary to kidney disease. The patient's chest x-ray does not show any pulmonary vascular congestion. Currently, clinically stable. No shortness of breath. No rales or creps on auscultation. We do not see any need for aggressive diuresis at this point. Thank you for allowing me to participate in this patient's care. We will closely monitor the patient's progress along with you. BRITT BRAVO MD /modl /[id number] d: 07/13/162208 t: 05/25/17 1614, CONSULTATION REPORT
--- NOTE | ~2016-07-12 | CON ---
PATIENT'S NAME: ELIEZER MCCOLLUM [facility] AGE: 85 Y [address] ROOM: [id number] [place], [place] [address] LOCATION: GPCU ADMIT DATE: 07/12/2016 Consultation DISCHARGE DATE: FAMILY PHYSICIAN: Prakash Orosco MD ATTENDING PHYSICIAN: Alix Alvarado DATE OF CONSULTATION: 07/25/2016 REFERRING PHYSICIAN: TARA MARTI MD REQUESTING PHYSICIAN: Leelee Aranda MD. CHIEF COMPLAINT: Small bowel obstruction. HISTORY OF PRESENT ILLNESS: Eliezer Mccollum is an 85-year-old male who had noticed increasing weakness at home prior to admission. He had fallen several times. On July 12, he presented to the emergency room due to this and an MRI had shown severe spinal stenosis. A CT scan of the head was also done, which showed no acute changes. The patient also had an MRI of the cervical spine, which showed multilevel degenerative changes with moderate to severe central canal and bilateral neural foraminal stenosis at C5-C6. MRI of the thoracic spine showed mild degenerative changes with no significant canal or neural foraminal stenosis. MRI of the lumbar spine showed dextroscoliosis of the lumbar spine with extensive multilevel degenerative changes with significant central canal and bilateral neural foraminal stenosis. The patient was admitted under the care of Dr. Alvarado. It was noted that the patient had a recent diagnosis of aspergillosis pneumonia along with chronic kidney disease caused by focal segmental glomerulosclerosis. The Hospitalist along with Nephrology and Pulmonology were all consulted. On July 13, the patient had a [id number] myocardial infarction. He underwent a heart catheterization, but no PCI was required. The patient was cleared for surgery on July 16 and underwent a bilateral laminectomy of L3-L4 and L4-L5. Postoperative hypotension was noted with the need for dopamine. On July 20, the patient had anemia, worse than expected, and Gastroenterology was consulted. The patient underwent an EGD on July 21, that showed ulcerative esophagitis and duodenitis. He was placed on high dose PPI and Carafate. On July 22, the patient developed emesis and an NG tube was placed. He had 450 out in the 1st 24 hours followed by 700 mL. He was noted to have an ileus on July 23 and Dulcolax and magnesium citrate were ordered. His NG tube fell out on July 24, but the patient was doing better, and a clear liquid diet was ordered with advancement as tolerated. He was noted to have emesis that evening. Therefore, a CT scan of the abdomen and pelvis was obtained PATIENT'S NAME: ELIEZER MCCOLLUM [facility] AGE: 85 Y [address] ROOM: [place] [address] [facility] ADMIT DATE: 07/12/2016 Consultation DISCHARGE DATE: FAMILY PHYSICIAN: Prakash Orosco MD ATTENDING PHYSICIAN: Alix Alvarado RITA VARGHESE PA-C FOR MD KEHINDE MARINO/gregorio /[id number] d: 07/25/168 t: 08/14/162043, CONSULTATION REPORT
--- NOTE | ~2016-07-12 | CON ---
PATIENT'S NAME: DAYANA DE LA CRUZ [facility] AGE: 85 Y [address] ROOM: [address] [address] LOCATION: GPCU ADMIT DATE: 07/12/2016 Consultation DISCHARGE DATE: FAMILY PHYSICIAN: Prakash Orosco MD ATTENDING PHYSICIAN: Alix Alvarado DATE OF CONSULTATION: 07/13/2016 REFERRING PHYSICIAN: TARA ROCHE MD TIME: 10:15 a.m. REASON FOR CONSULT: Bilateral lower extremity weakness. HISTORY OF PRESENT ILLNESS: This is an 85-year-old male who is sleepy and not a great historian for me this morning. So, the history is obtained from the chart and from his and son who are present at the bedside. The story starts previous to April. Previous to April, the patient was ambulating independently without any aids. In April, he underwent some testing for his kidneys and was found to have some kidney failure. He then started using a cane. In the last 3 weeks, he has had to use a walker because of his bilateral lower extremity weakness. He actually did have to call his family because he could not get up from work and could not walk. So, he was brought to the hospital for evaluation. Normally, the patient has some numbness and tingling in both feet, and that has been unchanged. The also stated he fell over a week ago. He has not been sick or had any recent travel. He denies any diarrhea or recent viral illness. He has not been around any sick contacts. He states he is short of breath with exertion, but is not at rest. The patient had multiple MRI images including lumbar, thoracic, and cervical spine films in the emergency room. Dr. Alvarado did see the patient in the emergency room, and there was some discussion that this patient may have Guillian-[place] syndrome. REVIEW OF SYSTEMS: The patient is quite sleepy and unable to participate in the review of systems. PAST MEDICAL HISTORY: 1. Recently diagnosed pulmonary aspergillosis. 2. CKD, stage 3, secondary to focal segmental glomerulosclerosis based on the kidney biopsy. 3. Coronary artery disease, status post CABG in 2006. 4. Hyperlipidemia. 5. Hypertension. PATIENT'S NAME: DREXEL [facility] AGE: 85 Y [address] ROOM: [id number] [place] [id number] LOCATION: GPCU ADMIT DATE: 07/12/2016 Consultation DISCHARGE DATE: FAMILY PHYSICIAN: Prakash Orosco MD ATTENDING PHYSICIAN: Alix Alvarado 6. History of Bright disease. 7. History of aortic valve stenosis. 8. History of malignant colon cancer, status post ostomy placement in the past. ALLERGIES: CELEBREX WHICH CAUSES DIARRHEA, ELAVIL CAUSES UNKNOWN REACTION, HYDROCODONE WHICH CAUSES NAUSEA AND VOMITING WITH DIZZINESS, AND DARVOCET WHICH CAUSES AN UNKNOWN REACTION. HOME MEDICATIONS: On the chart and were reviewed by me. SOCIAL HISTORY: Remote smoking history for 35 years, but he quit in 1977. Denies any alcohol or illegal drug use. PAST SURGICAL HISTORY: 1. Status post kidney biopsy in April of 2016. 2. Coronary artery disease, status post open heart surgery in 2006. 3. Cholecystectomy. 4. Ostomy from colon cancer. 5. Recent lung biopsy. FAMILY HISTORY: His father had a myocardial infarction at age 60, and mother had diabetes and a myocardial infarction at age 80. PHYSICAL EXAMINATION: VITAL SIGNS: Temperature 97.6, heart rate 88, blood pressure 130/80, respirations 16, and saturations 90% on room air. GENERAL APPEARANCE: The patient is sleepy and returns to sleep when not aroused. He is oriented x3. Very pleasant. HEENT: Head is atraumatic and normocephalic. Pupils are equal, round, and reactive to light. Extraocular muscles intact. NECK: No neck stiffness. No carotid bruits auscultated. CARDIOVASCULAR: Normal S1 and S2. Regular rate and rhythm. A 2/6 murmur is best heard over the left sternal border. RESPIRATORY: Crackles in the bases. ABDOMEN: Obese, soft, nontender, and nondistended with active bowel sounds present. EXTREMITIES: 2+ bilateral pitting edema. NEUROLOGIC: Cranial nerves 2 through 12 are intact. He does not have any facial droop. No slurred speech. Pronator drift negative. Babinski negative. Sensation is slightly decreased in both feet, which is chronic, PATIENT'S NAME: DAYANA DE LA CRUZ [facility] AGE: 85 Y [address] ROOM: [id number] [place] [id number] LOCATION: GPCU ADMIT DATE: 07/12/2016 Consultation DISCHARGE DATE: FAMILY PHYSICIAN: Prakash Orosco MD ATTENDING PHYSICIAN: Alix Alvarado according to the patient. The patient has had a left ankle fusion. Therefore, his plantar flexion on the left and dorsiflexion are limited; however, on the right, his plantar flexion and dorsiflexion are 5. His quadriceps strength on the right is 5 and on the left 5. His hip flexors on the right are less than 3, where on the left they are greater than 3. DIAGNOSTIC DATA: Respiratory measures have been measured. His negative inspiratory force is between -37 and -43. His vital capacity is between 1000 and 1250. The impression of his cervical spine MRI shows multilevel degenerative changes which are worse at C5-C6 with [id number] central canal and bilateral neural foraminal stenosis. Thoracic MRI states mild degenerative changes with no significant canal or neural foraminal stenosis. His lumbar spine does show dextroscoliosis of the lumbar spine with extensive multilevel degenerative changes with multiple areas of significant central canal and bilateral neural foraminal stenosis. It also shows bilateral spondylolysis at L5 with 6 mm of anterolisthesis of L5 on SI. ASSESSMENT AND PLAN: Severe spinal stenosis. We will defer care to Dr. Alvarado of Neurosurgery for treatment of this issue. This is unlikely Guillian-[place] because of the gradual onset of his weakness. He does have a DTR on his right of approximately 3+. The patient's findings were developed in conjunction with Dr. Roche who also examined the patient. Findings were discussed with the patient's and son. We would like to thank you for the opportunity to participate in this patient's care. Please do not hesitate to contact us if you have any questions. OBIE YANEZ APRN FOR TARA ROCHE MD PP/modl /[id number] d: 07/13/16 1825 t: 08/16/16 1304, CONSULTATION REPORT
--- NOTE | ~2016-07-12 | CON ---
PATIENT'S [facility]: [facility] AGE: 85 Y [address] ROOM: [place] [address] LOCATION: GPCU ADMIT DATE: 07/12/2016 Consultation DISCHARGE DATE: FAMILY PHYSICIAN: Prakash Orosco MD ATTENDING PHYSICIAN: Alix Alvarado REFERRING PHYSICIAN: TARA MARTI MD Consult for Dr. Alvarado. This pleasant 85-year-old gentleman is status post lumbar spine decompression surgical procedure to relieve lumbar spine stenosis, done on 07/17/[address] Alvarado. He was with marked inability to move his bilateral lower extremity and unable to ambulate, secondary to spinal stenosis with myelopathy. He is at the present time telling me that his right side is the most affected than the left side; however, both of these were very weak. He reports that he had stenosis at L2-3, 3-4, and 4-5. He is followed closely by a production control scheduler at the present time because of his kidney failure and is probably going to receive some dialysis depending on his status. PAST MEDICAL HISTORY: He is with past history of followin. Pulmonary aspergillosis. 2. 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 3. Coronary artery disease, status post CABG in 2006. 4. Dyslipidemia. 5. Hypertension. 6. History of Bright disease. 7. Aortic valvular stenosis. 8. Malignant CA of colon, status post resection with ostomy replacement. ALLERGIES: HE IS ALLERGIC TO ELAVIL, CELEBREX, HYDROCODONE, AND DARVOCET. MEDICATIONS: He is on the following medications: 1. Prednisone. 2. Insulin detemir. 3. Albuterol. 4. Insulin aspartate, mild scale. 5. Dopamine hydrochloride. 6. Human albumin 25%. 7. Zofran. PATIENT'S NAME: [facility] AGE: 85 Y [address] ROOM: [place] [address] LOCATION: GPCU ADMIT DATE: 07/12/2016 Consultation DISCHARGE DATE: FAMILY PHYSICIAN: Prakash Orosco MD ATTENDING PHYSICIAN: Alix Alvarado 8. Morphine sulfate. 9. NaCl 0.9%. 10. Neoral. 11. VFEND. 12. Tylenol. 13. Aspirin. 14. Lisinopril. 15. [place]-3. 16. Glucagon. 17. Dextrose. 18. Glucose. 19. Nitroglycerin. 20. Mag-Ox. 21. Lipitor. 22. [place]. 23. Zaroxolyn. PHYSICAL EXAMINATION: GENERAL: At the present time, he is alert and oriented x3. VITAL SIGNS: Blood pressure 120/56, temperature 97.8, pulse 108, respiratory rate 20. He is 5 feet tall and weighs 92.8 kg. MUSCULOSKELETAL: Muscle strength of bilateral lower extremity is at best about 3+ to 4- with marked decreased ability to tolerate endurance. He is practically unable to stand. Dorsiflexors of both sides are very weak. He has fusion of the left ankle, secondary to old surgery. ASSESSMENT AND PLAN: At the present time, he is continent of his bowel and has a Childs catheter because he was incontinent of his bladder. We will put him on PT/OT, please see the orders, and we will plan to take him to rehab for intensive rehabilitation down the line when he is stable. In discussion with production control scheduler physician, he informed me that he probably would be ready in about seven days. I will follow alongside with you. Thank you for this referral. All the above was explained to the patient in detail. He verbalized understanding and agreement. DAYANA FRENCH MD WMS/modl PATIENT'S NAME: DAYANA DE LA CRUZ [facility] AGE: 85 Y [address] ROOM: [id number] [place] [id number] LOCATION: GPCU ADMIT DATE: 07/12/2016 Consultation DISCHARGE DATE: FAMILY PHYSICIAN: Prakash Orosco MD ATTENDING PHYSICIAN: Alix Alvarado /[id number] d: 07/18/162055 t: 07/20/16 08, CONSULTATION REPORT
--- NOTE | ~2016-07-12 | CON ---
PATIENT'S NAME: [facility] AGE: 85 Y [address] ROOM: [place] [address] LOCATION: GICU ADMIT DATE: 07/12/2016 Consultation DISCHARGE DATE: 07/30/2016 FAMILY PHYSICIAN: Prakash Orosco MD ATTENDING PHYSICIAN: Alix Alvarado DATE OF CONSULTATION: 07/13/2016 REFERRING PHYSICIAN: Myron Roche MD INDICATION: History of aspergillosis. HISTORY OF PRESENT ILLNESS: This is an 85-year-old male, admitted for increased weakness and falls. He was recently diagnosed with FSGS and started on cyclosporine and prednisone. He recently had a CT-guided biopsy of the lung with pathology revealing Aspergillus. He was seen by ID this week and recommended to start on voriconazole. The patient reports that he has been started on this. Baseline dyspnea on exertion has not been any worse in the last few weeks. He denies any cough, hemoptysis, wheezing, or edema. PAST MEDICAL HISTORY: Includes: 1. Recently diagnosed aspergillosis. 2. 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 3. CAD status post CABG in 2006. 4. Hyperlipidemia. 5. Hypertension. 6. History of Bright disease. 7. History of aortic valve stenosis. 8. History of malignant colon cancer status post ostomy placement. ALLERGIES: SEE MAR. MEDICATIONS: See MAR. FAMILY HISTORY: Father had an OH at the age of 16. Mother had diabetes and OH in her 80s. SOCIAL HISTORY: The patient is a former smoker about one pack per day for 35 years and quit in 1977. He denies any alcohol use. PATIENT'S NAME: [facility] AGE: 85 Y [address] ROOM: [address] [address] LOCATION: GI ADMIT DATE: 07/12/2016 Consultation DISCHARGE DATE: 07/30/2016 FAMILY PHYSICIAN: Prakash Orosco MD ATTENDING PHYSICIAN: Alix Alvarado REVIEW OF SYSTEMS: All review of systems were reviewed and are negative except for what is noted in the HPI. PHYSICAL EXAMINATION: VITAL SIGNS: Blood pressure 104/55, pulse 115, respirations 16, temp 97.9, he is 93% on room air. GENERAL: This is an 85-year-old male, who is alert and oriented x3, and appears in no acute distress at the time of exam. HEENT: Head: Normocephalic and atraumatic. Eyes: Clear. NECK: Supple. No adenopathy. No carotid bruits or JVD. LUNGS: Clear throughout bilaterally. No wheezes or rales. HEART: Regular rate and rhythm with 2/6 systolic murmur. No gallop or rub. ABDOMEN: Soft, nontender, and nondistended. Bowel sounds x4. EXTREMITIES: No cyanosis or clubbing. 1+ bilateral lower extremity edema. ASSESSMENT: 1. 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 Case discussed with Dr. Loyola, the ID specialist, who saw this patient 2 days ago in the clinic and recommended voriconazole therapy. Pending test results. 2. Bilateral lower extremity weakness most likely secondary to lumbar stenosis versus Guillain-[place] which is less likely. 3. Chronic kidney disease stage 3/focal segmental glomerulosclerosis, stable. 4. Chronic immunosuppression due to cyclosporine and prednisone. 5. Positive cardiac markers? non-STEMI. PLAN: Continue fluconazole and half the dose because of cyclosporin. Recommend Cardiology consult due to elevated troponin. Follow up on CBC and CMP and the remainder will be business solutions consultant's recommendations. We will start bronchodilators as needed and make further recommendations pending the course of his stay. Thank you for the consult and opportunity to participate in the patient's care. ADIEL WILLIS APRN FOR MD TORO LENTZ/gregorio /[id number] d: 08/19/16254 t: 08/20/162122, CONSULTATION REPORT
--- NOTE | ~2016-07-12 | PN ---
PATIENT'S NAME: DAYANA DE LA CRUZ [facility] AGE: 85 Y [address] ROOM: [address] [place], [place] [address] LOCATION: GICU ADMIT DATE: 07/12/2016 Progress Notes DISCHARGE DATE: 07/30/2016 FAMILY PHYSICIAN: Prakash Orosco MD ATTENDING PHYSICIAN: Alix Alvarado DATE OF SERVICE: 07/29/2016 I was called by the nurse from bedside as the patient is having trouble breathing. Ordered immediate chest x-ray and ABG. He had small bowel obstruction/ileus in the past, and we knew that he was eating. We decided to put the NG done into the stomach to aspirate whatever residual he had. Before we could do that, the patient started throwing up and became unresponsive. He was put in left lateral position. We lost pulse and a code blue was called. Initial rhythm was PEA. We did resuscitation for 4 minutes with 1 round of epinephrine. Return of spontaneous circulation was achieved. The patient was intubated with an ET tube. He was found to be hypotensive and started on Ernesto- Synephrine at this point. An arterial line was placed in for hemodynamic monitoring. Discussion with the family was held and explained the prognosis and overall condition given he has renal failure, immunosuppression, as well as fungal pneumonia. Of note, prior, the patient has stated multiple times that he wanted to be DNR/DNI, but on this admission, he wanted to be a full code. and rest of the family were at the bedside. Explained all the condition and they wanted to withdraw all care at this time. We will go ahead and make the patient comfortable with compassionate extubation. MD DIVIEN DAVIDSON/gregoroi /[id number] d: 07/29/162105 t: 08/06/16 1521, PROGRESS NOTES
--- NOTE | ~2016-07-12 | CON ---
PATIENT'S NAME: [facility] AGE: 85 Y [address] ROOM: [place] [address] LOCATION: GPCU ADMIT DATE: 07/12/2016 Consultation DISCHARGE DATE: FAMILY PHYSICIAN: Prakash Orosco MD ATTENDING PHYSICIAN: Alix Alvarado DATE OF CONSULTATION: 07/25/2016 REFERRING PHYSICIAN: TARA MARTI MD CONTINUATION: A CT scan was done on July 25, 2016, that showed the stomach to be distended containing gas and fluid with air fluid levels. There were distended proximal small bowel loops which contained gas and fluid with air fluid levels seen in the proximal small bowel loops. These measured up to 5 cm in size. There were nondistended distal small bowel loops, predominantly at the right lower quadrant of the abdomen. Gas and fecal material were seen in a nondistended colon. There were postoperative changes of bowel surgery noted. Due to small bowel distention and concerns for small bowel obstruction, Dr. Aranda consulted Surgery for evaluation. ALLERGIES: CINNAMON. MEDICATIONS: At home included, 1. Nitroglycerin. 2. Lipitor. 3. Multivitamin. 4. [place]-3. 5. Calcium carbonate with vitamin D. 6. Lasix. 7. Ramipril. 8. Prednisone. 9. Cyclosporine. 10. Magnesium oxide. 11. Sodium chloride. ILLNESSES: Coronary artery disease, status post coronary artery bypass graft 3 vessels in 2006 with [id number]-[id number]-[id number] NE during this hospitalization with no PCI required; chronic kidney disease, stage 3 with biopsy showing focal segmental glomerulosclerosis; pulmonary aspergillosis based on lung biopsy; hyperlipidemia; hypertension; Bright disease; history of aortic valve stenosis; and history of perforated diverticulitis with temporary colostomy which has been reversed. PATIENT'S NAME: [facility] AGE: 85 Y [address] ROOM: [place] [address] LOCATION: GPCU ADMIT DATE: 07/12/2016 Consultation DISCHARGE DATE: FAMILY PHYSICIAN: Prakash Orosco MD ATTENDING PHYSICIAN: Alix Alvarado OPERATIONS: Include coronary artery bypass graft 3 vessel, kidney biopsy, lung biopsy, exploratory laparotomy with colon resection with colostomy and colostomy reversal, cholecystectomy for gangrenous cholecystitis, and bilateral laminectomy of L3-L4 and L4-L5. SOCIAL HISTORY: The patient's is at bedside. The patient is a former cigarette smoker and quit in 1977. He does not consume alcohol. FAMILY HISTORY: Father with myocardial infarction at age 60. Mother had diabetes and also had myocardial infarction in her 80s. REVIEW OF SYSTEMS: See above. At this time, the patient denies any abdominal pain, denies any nausea. He is passing gas and having bowel movements today. PHYSICAL EXAMINATION: VITAL SIGNS: Temperature is 97.1, blood pressure 132/63, pulse 90, and respirations 16. GENERAL: An 85-year-old male who was initially awake and talking to me and seemed appropriate and then fell asleep easily with further discussion. LUNGS: Clear anteriorly. HEART: Regular with murmur noted. ABDOMEN: Positive bowel sounds. Abdomen is soft and nontender. Scar in the midline and left lower quadrant consistent with prior laparotomy with colostomy. EXTREMITIES: Lower extremities are edematous. LABORATORY WORK: White blood cell count 6.3, hemoglobin 9.4, hematocrit 29.4, and platelets 173. Sodium 144, potassium 4.0, chloride 104, CO2 32, BUN 88, creatinine 2.8, and glucose 119. ASSESSMENT: An 85-year-old male admitted on July 12 with, 1. Severe spinal stenosis with paraparesis, status post bilateral laminectomy, now with nausea, vomiting, and CT finding worrisome for small bowel obstruction. 2. Aspergillosis pneumonia. 3. Chronic kidney disease, stage 3, with biopsy showing focal segmental glomerulosclerosis, on chronic steroids and cyclosporine. 4. EGD showing ulcerative esophagitis and duodenitis on July 21, on proton PATIENT'S NAME: DAYANA DE LA CRUZ [facility] AGE: 85 Y [address] ROOM: [address] [address] LOCATION: GPCU ADMIT DATE: 07/12/2016 Consultation DISCHARGE DATE: FAMILY PHYSICIAN: Prakash Orosco MD ATTENDING PHYSICIAN: Alix Alvarado pump inhibitors. 5. Aortic valve stenosis. 6. Diabetes. 7. Hypertension. 8. Hyperlipidemia. PLAN: I discussed this patient with Dr. Salinas who subsequently evaluated the patient. At this time, we will keep him n.p.o. We will hold off on placing the NG tube, but if he starts having nausea or vomiting, then we will place an NG to low intermittent suction. If an NG tube is required, then we may obtain a small bowel series for further evaluation. This was discussed with the patient and his . The questions and concerns were addressed. Dr. Salinas evaluated the patient and was involved in his assessment and plan and was available for supervision. RITA VARGHESE PA-C FOR MD KEHINDE MARINO/gregorio /[id number] d: 07/25/162325 t: 08/14/162045, CONSULTATION REPORT
--- NOTE | ~2016-07-12 | DS ---
PATIENT'S NAME: DAYANA DE LA CRUZ [facility] AGE: 85 Y [address] ROOM: [address] [place], [place] [address] LOCATION: [facility] ADMIT DATE: 07/12/2016 Discharge Summary DISCHARGE DATE: 07/30/2016 FAMILY PHYSICIAN: Prakash Orosco MD ATTENDING PHYSICIAN: Alix Alvarado SUMMARY DATE OF : 07/30/2016. REASON FOR ADMISSION: The patient was admitted with difficulty walking as a result of leg weakness. The patient indicated that he lost control of his legs and had fallen in the bathroom three days earlier and had a hard time getting back up. On closer questioning, the patient said he had had some back pain for years, but the weakness was fairly recent. On examination, the patient could barely lift his left leg up off the bed. On the right side, he was unable to lift the leg at all. He had a history of fungal infection of the lungs as well. MRI was done and it showed severe central canal stenosis at the L3-L4 level and at least moderate spinal stenosis at L4-L5. Treatment rendered. It was not clear whether the patient's leg weakness was entirely secondary to spinal stenosis; however, this was the only thing that we could find that was treatable. The patient, therefore, was taken to the operating room and underwent lumbar laminectomy at L3-L4 and L4-L5. His surgery was uncomplicated. Postoperatively, the patient did not really regain much strength in his lower extremities. Physical therapy and occupational therapy assisted in his care. The patient did develop an ileus for a period of time requiring NG suctioning, but this gradually improved. The patient also had some low hemoglobin and required blood transfusion. The patient's condition did not really improve and on the dane of 07/30/2016, the patient's condition rapidly worsened. It was felt that he may have aspirated. He was, therefore, taken to the Intensive Care Unit. According to the hospitalist's notes, discussions were held with the patient's family, and the patient's family did not wish for aggressive treatment. The patient was, therefore, placed on comfort cares, and he soon afterwards. The cause of appears to have been aspiration pneumonia and acute respiratory failure secondary to possible aspiration. PATIENT'S NAME: [facility] AGE: 85 Y [address] ROOM: [id number] [place], [place] [address] LOCATION: [facility] ADMIT DATE: 07/12/2016 Discharge Summary DISCHARGE DATE: 07/30/2016 FAMILY PHYSICIAN: Prakash Orosco MD ATTENDING PHYSICIAN: Alix Alvarado ALIX ALVARADO MD CNO/modl /[id number] d: 08/28/16 0634 t: 08/28/16 1511, DISCHARGE SUMMARY
--- NOTE | ~2016-07-12 | ER ---
PATIENT'S NAME: DAYANA DE LA CRUZ [facility] AGE: 85 Y [address] ROOM: [place] [address] LOCATION: GPCU ADMIT DATE: 07/12/2016 ER/Outpatient Report DISCHARGE DATE: FAMILY PHYSICIAN: Prakash Orosco MD ATTENDING PHYSICIAN: Alix Alvarado CHIEF COMPLAINT: Collapse with history of spinal stenosis. HISTORY OF PRESENT ILLNESS: Earlier today, the patient collapsed while walking down the lind. He states that he has had some weakness in his legs, but today it just got horrible. He was unable to really move his lower extremities and thus he needed evaluation. He contacted Dr. Soto, industrial robotics mechanic, who recommended referral to the emergency department. He denies any fevers or chills, but his lower extremities just quit working today. He stated he was trying to get ready to go to work, but was just unable to do so. There have been no other concerns according to the patient. Of note, he did have a fall a few days ago but otherwise does not have any symptoms from that. He does have chronic back pain and he has been needing a walker most recently. PAST MEDICAL HISTORY: Includes CABG. MEDICATIONS: See chart. ALLERGIES: SEE CHART. REVIEW OF SYSTEMS: All systems reviewed and negative except as noted in the HPI. PHYSICAL EXAMINATION: VITAL SIGNS: Vital signs were documented and reviewed, refer to nursing notes. GENERAL: Age-appropriate male. No obvious pain or distress. Resting comfortably on the exam table. NEUROLOGIC: The patient is awake and alert. Upper extremities are weak but symmetric. The lower extremities are extremely weak. He is able to activate the flexors and extensors only while on the bed. The left is with minimal activation even of the quadriceps complex. He can barely move his toes, left worse than right. He is able to move the legs bilateral. HEENT: Grossly normocephalic and atraumatic. Eyes are PERRL. Oropharynx is clear. PATIENT'S NAME: DAYANA DE LA CRUZ [facility] AGE: 85 Y [address] ROOM: [place] [address] LOCATION: GPCU ADMIT DATE: 07/12/2016 ER/Outpatient Report DISCHARGE DATE: FAMILY PHYSICIAN: Prakash Orosco MD ATTENDING PHYSICIAN: Alix Alvarado NECK: Supple. Trachea is midline. CHEST: Heart is regular rate and rhythm with no obvious murmurs. LUNGS: Grossly clear to auscultation bilateral. ABDOMEN: Soft, nontender, and nondistended. BACK: Normal to inspection and palpation. RECTAL: Has decreased tone. EXTREMITIES: Warm and well perfused. There is edema bilateral to the lower extremities to the mid calf or knee. SKIN: Grossly intact. No obvious rash or masses. STUDIES: MRI of the lumbar and thoracic spine is pending. IMPRESSION: Extreme lower extremity weakness, concern for possible cauda equina syndrome. EMERGENCY DEPARTMENT COURSE: The patient was seen and evaluated as above. Generalized medical evaluation was undertaken including evaluation of the heart and other causes of collapse. The patient will need to be re-evaluated by Dr. Mason who received hand off at 1800 hours. Please see his dictation for completion of the encounter. MD ANTWAN CRAIG/gregorio /[id number] d: 07/28/16 1227 t: 08/07/16 1933, OUTPATIENT REPORT
--- NOTE | ~2016-07-12 | CON ---
PATIENT'S NAME: DAYANA DE LA CRUZ [facility] AGE: 85 Y [address] ROOM: [address] [address] LOCATION: [facility] [place] ADMIT DATE: 07/12/2016 Consultation DISCHARGE DATE: FAMILY PHYSICIAN: Prakash Orosco MD ATTENDING PHYSICIAN: Alix Alvarado REFERRING PHYSICIAN: TARA MARTI MD REASON FOR CONSULTATION: Medical management. CHIEF COMPLAINT: Bilateral lower extremity weakness. HISTORY OF PRESENT ILLNESS: This is an 85-year-old male who says that he chronically does not have severe lower back pain, occasionally he feels some lower back pain but it does not really bother him that much. 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 The story is that the patient was at work yesterday morning and he suddenly felt this bilateral lower extremity weakness which causes him to have difficulty walking. He did not fall. Because the leg weakness was so weak that he could not even walk, he called his family and the family brought him here for evaluation. He said he chronically has some numbness and a decreased sensation in his both feet due to his neuropathy and this has not worsened. Recently, the patient fell roughly one week ago at home when he was walking with his walker. He denies any loss of consciousness and also denies any head trauma at that time. He said at that time it was not due to leg weakness, but it was just because he accidentally tripped and fell. The leg weakness happened yesterday morning when he was at work. He denies any recent travel or recent diarrhea or any recent viral upper respiratory tract infection. He also denies any sick contact. He chronically has exertional dyspnea and he said recently has been getting slightly worse. He also chronically has bilateral lower extremity edema and he said recently also has been getting slightly worse also. In the emergency room here, the patient had multiple MRI images including lumbar, thoracic, and cervical spine and CT of the head without contrast. CT of the head without contrast, the final report was no acute finding. MRI of the cervical, lumbar, and thoracic spine; the report is preliminary. The ER physician already contacted on-call neurosurgeon, Dr. Alvarado who has already viewed the film in person and also saw the patient, and per the medical note, showed severe lumbar spinal stenosis at level L3 and L4, L4 and L5, and L2 and L3, which could be the cause of his bilateral lower extremity weakness. The patient will be admitted and Hospitalist Team is consulted for medical management. PATIENT'S NAME: DAYANA DE LA CRUZ [facility] AGE: 85 Y [address] ROOM: [address] [address] LOCATION: [facility] [place] ADMIT DATE: 07/12/2016 Consultation DISCHARGE DATE: FAMILY PHYSICIAN: Prakash Orosco MD ATTENDING PHYSICIAN: Alix Alvarado REVIEW OF SYSTEMS: As mentioned in the history of present illness. All other systems were reviewed and negative except those mentioned in history of present illness. PAST MEDICAL HISTORY: 1. Recently diagnosed pulmonary aspergillosis. 2. CKD stage III secondary to focal segmental glomerulosclerosis based on the kidney biopsy. 3. Pulmonary aspergillosis also based on the lung biopsy. 4. Coronary artery disease, status post CABG back in 2006 and the patient has not had any chest pain since then. 5. Hyperlipidemia. 6. Hypertension. 7. History of Bright's disease. 8. History of aortic valve stenosis. 9. History of malignant colon cancer, status post ostomy placement in the past according to the patient. ALLERGIES: CELEBREX WHICH CAUSES DIARRHEA, ELAVIL CAUSES UNKNOWN REACTION, HYDROCODONE WHICH CAUSES NAUSEA AND VOMITING AND DIZZINESS, AND DARVOCET WHICH CAUSES UNKNOWN REACTION. HOME MEDICATIONS: Currently is being reconciled. SOCIAL HISTORY: The patient was a former cigarette smoker about 1 pack per day for 35 years and he quit in 1977. He denies any alcohol or any illegal drug use. PAST SURGICAL HISTORY: 1. Status post kidney biopsy in April 2016, which showed focal segmental glomerulosclerosis. 2. Coronary artery disease, status post open heart surgery, bypass in 2006. 3. Status post cholecystectomy. 4. Status post ostomy from colon cancer in the past. 5. Recently diagnosed pulmonary aspergillosis based on lung biopsy. FAMILY HISTORY: Father had a myocardial infarction at age 60 and mother had diabetes and also myocardial infarction at age 80s. PHYSICAL EXAMINATION: VITAL SIGNS: At the time of my dictation, temperature 97.6, heart rate 88, PATIENT'S NAME: DAYANA DE LA CRUZ [facility] AGE: 85 Y [address] ROOM: [place] [address] LOCATION: [facility] [place] ADMIT DATE: 07/12/2016 Consultation DISCHARGE DATE: FAMILY PHYSICIAN: Prakash Orosco MD ATTENDING PHYSICIAN: Alix Alvarado respirations 16, blood pressure 130/80, saturation 98% on room air. GENERAL APPEARANCE: Alert and oriented x3. A very pleasant male, in no acute distress. HEENT: Pupils equally round and reactive to light. Extraocular muscles intact. Nasal turbinates are normal bilaterally. Moist oral mucosa. NECK: Difficult to assess JVD due to the patient's thick neck. No neck stiffness. No cervical lymphadenopathy. CARDIOVASCULAR: Normal S1, S2. Regular rate and rhythm. A 2/6 intensity murmur is heard. No rubs, no gallops. RESPIRATORY: Bibasilar crackles. No rhonchi, no rales, no wheezing. ABDOMEN: Obese, soft, nontender, nondistended, normal bowel sounds. No hepatosplenomegaly. Bowel sounds are present. EXTREMITIES: A +2 bilateral pitting edema in bilateral lower extremities. NEUROLOGIC: Cranial nerves 2 through 12 intact. No facial droop. No slurred speech. Pronator drift negative. Babinski negative. Sensation slightly decreased in both feet, which is chronic according to the patient. In both feet, sensation is totally intact. Sensation is also intact in bilateral upper extremities. Muscle strength about 3/5, weakness, in bilateral lower extremities. Intact in bilateral upper extremities. Gokhwm-oa-qosg intact. Lhnv-te-kwgv intact. Proprioception and also vibration also intact. No slurred speech. SKIN: No ulcer, no rash, no cyanosis. MUSCULOSKELETAL: Muscle weakness about 3/5 strength in bilateral lower extremities. LABORATORY DATA: Lactic acid 1.8. Troponin is 0.815, followed by 0.758. ProBNP 10,273, followed by 8640. CPK 1284, followed by 1102. White blood cell 10, hemoglobin 10.1, hematocrit 29.4, MCV 93.6, platelet 140. Glucose 473, BUN 49, creatinine 1.6, sodium 138, potassium 4.4, chloride 104, CO2 of 25, calcium 8.1. Total protein 4.9, albumin 2.1. AST 130, ALT was 227, alkaline phosphatase 70, total bilirubin 1.4. GFR 41. Anion gap 13.4. ESR 68. INR 0.98, PTT 23. Urinalysis; 1000 glucose but negative for UTI. CK-MB 22.5, followed by 18.8. Procalcitonin 0.15. CRP 1.12. IMAGING STUDIES: 1. Chest x-ray on admission showed large area of irregular mass-like opacity at the right helium has increased in size since the prior study. Mild blunting of the left costophrenic angle suggests a small left pleural fluid collection. There is no evidence of pneumothorax. 2. CT of the brain without contrast on admission showed patchy periventricular small-vessel ischemic change with no acute ischemia or hemorrhage identified. Suspected chronic left maxillary sinusitis. 3. MRI of the cervical, lumbar, and thoracic spine based on the preliminary report on admission show multiple level degenerative changes worst at the PATIENT'S NAME: DAYANA DE LA CRUZ [facility] AGE: 85 Y [address] ROOM: [address] [address] LOCATION: [facility] [place] ADMIT DATE: 07/12/2016 Consultation DISCHARGE DATE: FAMILY PHYSICIAN: Prakash Orosco MD ATTENDING PHYSICIAN: Alix Alvarado C5 and C6 with [id number] central canal and bilateral neural foraminal stenosis. Mild degenerative changes with no significant canal or neural foraminal stenosis. Dextroscoliosis of the lumbar spine with extensive multilevel degenerative changes with multiple areas of significant central canal and bilateral neural foraminal stenosis. Bilateral spondylosis at L5 with 6 mm of anterolisthesis of L5 on S1. 4. EKG on admission on 07/12/2016 at 6:25 p.m. shows sinus rhythm with a heart rate of 82 beats per minute, OH 145 milliseconds, QRS 98 milliseconds, QTc 405 milliseconds, T inversion in the inferior leads in lead number III; otherwise, no ST elevation or ST depression are identified. The patient denies any chest pain. No prior EKG for comparison. ASSESSMENT AND PLAN: 1. Regarding his bilateral lower extremity weakness: The patient was already seen by neurosurgeon, Dr. Alvarado, in the emergency room and the patient's bilateral leg weakness most likely is secondary to severe lumbar spinal stenosis and will defer further care per Neurosurgery for further plan. 2. Regarding his pulmonary aspergillosis: I will consult Pulmonology in the morning. The patient says that the patient was seen by Pulmonology yesterday and was supposed to start on some medication; however, the patient has not picked up from the pharmacy today because the patient is here. I will consult Pulmonology, Dr. Watts, to please follow the patient while the patient is in the hospital to continue his pulmonary aspergillosis management. Currently, the patient is not septic and denies any cough and also does not have any fever. 3. Regarding his chronic kidney disease stage III secondary to focal segmental glomerulosclerosis: I will consult nephrology, Dr. Soto, who has been following the patient. I will continue his home medications which include cyclosporine and prednisone. The patient is on a tapering dose regimen with 20 mg for 5 days starting on 07/12/2016 and then cut down to 10 mg for 5 days starting on 07/17/2016 and then cut down to 5 mg starting on 07/22/2016 and continue indefinitely. I will also continue his ramipril which is a home dose given that the patient has chronic kidney disease around his baseline and he is not in acute kidney injury on chronic kidney disease; therefore, ramipril will be continued for now. 4. Regarding his troponin elevation: The patient denies any chest pain. The second set of the troponin is already going down. The patient does have history of aortic stenosis and the patient's leg edema is getting worse and the patient is also complaining of a worsening exertional dyspnea. The patient has not gotten his Lasix home dose yet. This troponin elevation could be secondary to congestive heart failure, also patient does have a chronic kidney disease stage III and we do not have any baseline to compare his previous number of the troponin. PATIENT'S NAME: DAYAAN DE LA CRUZ [facility] AGE: 85 Y [address] ROOM: [place] [address] LOCATION: [facility] [place] ADMIT DATE: 07/12/2016 Consultation DISCHARGE DATE: FAMILY PHYSICIAN: Prakash Orosco MD ATTENDING PHYSICIAN: Alix Alvarado Patient looks very comfortable currently. The second set of troponin is also already trending down and patient denies chest pain. I will keep cycling cardiac enzymes closely and if he has upward trend of elevated troponin or chest pain or EKG changes then will start iv heparin drip and consult Cardiology. I will keep trending the cardiac enzymes and repeat EKG again in the morning. I will get a transthoracic echo in the morning to assess his ejection fraction and valvulopathy and looking for any wall motion abnormality. Further plan depends on clinical course. 5. Regarding his coronary artery disease, status post coronary artery bypass graft back in 2006. Continue his home medication which includes Lipitor, ramipril. The patient denies any chest pain. Will cycle cardiac enzymes as mentioned before. 6. Regarding his hyperglycemia secondary to prednisone induced. Currently fingerstick glucose is 402. I will give him one dose of Levemir subcu 5 units every night and also put him on the sliding scale with aspart, aggressive dose regimen and titrate as necessary. The patient can have a diabetic diet. I will check a hemoglobin A1c just to make sure he is not diabetic. 7. Regarding his hypertension. Continue home medication which includes the MITZI inhibitor. 8. Regarding his hyperlipidemia. Continue his Lipitor. 9. Code status. He is a DO NOT RESUSCITATE/DO NOT INTUBATE. 10. Deep venous thrombosis prophylaxis. Compression devices in case the patient will require a decompression for the lumbar spinal stenosis in the near future. Time spent in care on the day of admission 45 minutes including chart review, interviewing the patient, examining the patient, addressing all the questions and concerns that the patient had, I also went over the plan of care in detail with the nurses and also with the patient. Further plan will depend on his clinical course and also based on the medical provider who will be taking over the care starting on 07/13/2016 in the morning at 8 o'clock when the shift changes. Further plan depends on clinical course. In addition, regarding his bilateral lower extremity weakness, Neurology consult has been requested by Neurosurgery to be placed in the morning, for the concern of Guillain-[place] syndrome. Currently, on the patient's neurological examination, the patient does have good deep tendon reflex in both lower extremities at the knees and I also already requested respiratory therapist to perform forced vital capacity and also maximum inspiratory pressure now and also every 4 hours. The criteria for intubation in the case of a suspected Guillain-[place] syndrome will be if the forced vital capacity is less than 20 mL/kg or the maximum inspiratory pressure less than 30 cm of water of pressure. Currently, the patient's first set of the forced vital capacity and the maximum inspiratory pressure did not meet the criteria for intubation. I already documented the finding and the numbers in the chart PATIENT'S NAME: DAYANA DE LA CRUZ [facility] AGE: 85 Y [address] ROOM: [place] [address] LOCATION: [facility] [place] ADMIT DATE: 07/12/2016 Consultation DISCHARGE DATE: FAMILY PHYSICIAN: Prakash Orosco MD ATTENDING PHYSICIAN: Alix Alvarado. RT will keep doing that every 4 hours and notify the MD if the intubation criteria is met. Patient is DNR/DNI but measuring these 2 parameter will be importnat to see if he has respiratory symptoms from suspected GBS which at the moment is of low likelihood. The patient also does not have any history of recent of viral upper respiratory tract infection or any history of diarrhea to suggest Campylobacter diarrhea which could be the trigger of the Guillain- [place] syndrome. At the moment, I will continue the forced vital capacity and maximum inspiratory pressure check every 4 hours and also continue the neuro checks every 4 hours. Neurology will see the patient on 07/13/2016, consult requested by Neurosurgery to further investigate the possibility of Guillain- [place] syndrome. Currently, the patient's weakness is improving, initially at home he was barely able to move his legs, right now his muscle strength is about 3/5 in bilateral lower extremities. Further plan depends on clinical course. WON GARZA MD CC/modl /[id number] d: 07/13/16511 t: 08/07/16609, CONSULTATION REPORT
[~2016-07-12 17:31] MED LIST changes: -DELTASONE10 MG PO; -DELTASONE5 MG PO
[2016-07-12 18:49] LABS: HEMATOCRIT 29.4 % (33.0-50.0); HEMOGLOBIN 10.1 g/dL (11.0-16.0); MCH 32.2 pg (27.0-34.0); MCHC 34.4 gm/dL (32.0-36.5); MPV 10.5 fl (9.4-12.4); PLATELET COUNT 140 K/uL (150-450); RBC 3.14 M/uL (3.50-5.50)
[2016-07-12 18:50] LABS: MCV 93.6 fl (83.0-98.0)
[2016-07-12 18:51] LABS: BILIRUBIN URINE NEGATIVE (NEGATIVE); BLOOD URINE 250 /UL (NEGATIVE); COLOR URINE YELLOW (YELLOW); GLUCOSE URINE 1000 mg/dL (NEGATIVE); KETONE URINE NEGATIVE (NEGATIVE); LEUKOCYTES URINE NEGATIVE /UL (NEGATIVE); NITRITE URINE NEGATIVE (NEGATIVE); PROTEIN URINE 30 mg/dL (NEGATIVE); TURBIDITY URINE 1+ (CLEAR); UROBILINOGEN URINE NORMAL (NORMAL)
[2016-07-12 18:56] LABS: INR - (THERAPEUTIC) 0.98 (0.92-1.07); PROTIME 10.3 SECONDS (9.8-11.4); PTT 23 SECONDS (25-32)
[2016-07-12 19:01] LABS: WBC URINE 0-2 #/HPF (NEGATIVE)
[2016-07-12 19:02] LABS: BACTERIA URINE NEGATIVE (NEGATIVE); EPITHELIAL URINE 0-2 #/HPF (NEGATIVE)
[2016-07-12 19:10] LABS: ALBUMIN 2.1 gm/dL (3.5-5.0); ANION GAP 13.4 (10.0-19.0); CALCIUM 8.1 mg/dL (8.5-10.5); CREATININE 1.6 mg/dL (0.6-1.3); POTASSIUM 4.4 mMol/L (3.7-5.1); TOTAL BILIRUBIN 1.4 mg/dL (0.0-1.5)
[2016-07-12 19:16] LABS: TOTAL PROTEIN 4.9 g/dL (6.0-8.4)
[2016-07-12 19:33] LABS: ABSOLUTE NEUTROPHIL CT (ANC) 9.2 K/uL (1.4-9.0); BANDED NEUTROPHIL # 0.6 K/uL (0.0-0.1); BANDED NEUTROPHILS % 6 %; LYMPHOCYTE # 0.2 K/uL (0.8-4.0); LYMPHOCYTE % 2 %; MONOCYTE # 0.6 K/uL (0.0-1.0); SEGMENTED NEUTROPHIL # 8.6 K/uL (1.4-9.0); SEGMENTED NEUTROPHIL % 86 %
[2016-07-13] MEDS ORDERED: DELTASONE10 MG PO (00:02)
[2016-07-13] MEDS ORDERED: DELTASONE5 MG PO (00:05)
--- NOTE | 2016-07-13 03:58 | NUR ---
Patient admitted for increasing muscle weakness to bilateral leg. MRI shows spinal stenosis. Patient is currently being treated for a fungual lung infection. Has Renal failure. Patient has +3 edema to bilateral legs and +4 edema to ankles/feet. Has neuropathy to feet with tingling. He gets SOB with activity and when talking. Denies having any pain.
--- NOTE | 2016-07-13 04:43 | NUR ---
Shift Summary: Patient admitted at 2335 for spinal stenosis of L4-5 that causes increasing weakness to legs to the point patient did not feel like his legs would hold him up. He did have a fall over a week ago. Patient also has a new Dx of a fungal lung DX and has been on prednisone. Blood sugar on arrival to the floor was 402. He is now on an aggressive scale with accuchecks AC&HS. Patient also has a history of renal failure. Wears a brief for occasional incontinence with slightly red buttocks. Has bruise to right chest from lung biopsy last week. Has tingling to feet due to neuropathy. Has +3 edema to legs/+4 to feet/+2 to arms.
[2016-07-13 08:17] LABS: HEMATOCRIT 34.4 % (33.0-50.0); MCH 32.5 pg (27.0-34.0); MCHC 34.9 gm/dL (32.0-36.5); MCV 93.2 fl (83.0-98.0); MPV 10.3 fl (9.4-12.4); RBC 3.69 M/uL (3.50-5.50); RDW-CV 15.1 % (11.9-14.6); WBC 14.2 K/uL (4.0-11.0)
[2016-07-13 08:31] LABS: INR - (THERAPEUTIC) 0.99 (0.92-1.07); PROTIME 10.4 SECONDS (9.8-11.4)
[2016-07-13 08:52] LABS: ALBUMIN 2.4 gm/dL (3.5-5.0); ANION GAP 13.6 (10.0-19.0); CALCIUM 8.8 mg/dL (8.5-10.5); CREATININE 1.3 mg/dL (0.6-1.3); MAGNESIUM 1.9 mg/dL (1.8-2.6); POTASSIUM 3.6 mMol/L (3.7-5.1); TOTAL PROTEIN 5.6 g/dL (6.0-8.4)
[2016-07-13 08:53] LABS: PHOSPHORUS 1.8 mg/dL (2.5-4.9); TOTAL BILIRUBIN 1.8 mg/dL (0.0-1.5)
--- NOTE | 2016-07-13 15:46 | NUR ---
Transfer note: Patient is alert and oriented. VSS. on room air. has IV to left AC. Is on bedrest. Uses urinal but is occasionaly incontinent and/or spills urinal. Is on strict I&O. Has severe lumbar spinal stenosis. CAM checks show slight weakness to feet. Is ACHS on aggressive scale. Had 4 units at lunch. Has a fungal infection of the lung, is on steroids for this. 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 Lung sounds diminished. Is on an ADA diet. Ate 100% of lunch. Has hx of renal failure, Dr Soto on board. has bruise to right chest from the lung bx previously. Has tingling to feet from neuropathy. Has 2+ edema to hands/arms. Has 3-4+ edema in legs/ankles/feet. Cooperative with cares.
[2016-07-13 22:16] LABS: CPK 105 IU/L (35-332)
--- NOTE | 2016-07-14 04:55 | NUR ---
Significant Event: A/O, [place], SBP 80/50s, NS fluid bolus 300ml given, d/c coreg, pressures now stable 100/50s keeping MAP >65, RA, dry non productive cough, Heparin gtt at 1200 units/hr to R)post fa, L)arm infiltrated, edema and redness improving, NPO since MN for heart cath, consents and groin prep done Follow up: cath today, then pending back surgery
[2016-07-14 07:00] LABS: BASOPHIL % 0.1 %; EOSINOPHIL % 0.4 %; HEMATOCRIT 27.1 % (33.0-50.0); HEMOGLOBIN 9.4 g/dL (11.0-16.0); IMMATURE GRANULOCYTE # 0.2 K/uL (0.0-0.3); IMMATURE GRANULOCYTE % 1.9 %; LYMPHOCYTE # 0.5 K/uL (0.8-4.0); LYMPHOCYTE % 4.6 %; MCH 32.8 pg (27.0-34.0); MCHC 34.7 gm/dL (32.0-36.5); MCV 94.4 fl (83.0-98.0); MONOCYTE # 0.5 K/uL (0.0-1.0); MONOCYTE % 4.2 %; MPV 10.3 fl (9.4-12.4); NEUTROPHIL # (ANC) 9.6 K/uL (1.4-9.0); NEUTROPHIL % 88.8 %; NRBC % 0 /100WBC (0-0.00); PLATELET COUNT 125 K/uL (150-450); RBC 2.87 M/uL (3.50-5.50); RDW-CV 15.5 % (11.9-14.6); WBC 10.8 K/uL (4.0-11.0)
[2016-07-14 07:05] LABS: INR - (THERAPEUTIC) 1.09 (0.92-1.07); PROTIME 11.5 SECONDS (9.8-11.4)
[2016-07-14 07:11] LABS: CALCIUM 7.8 mg/dL (8.5-10.5); CREATININE 1.3 mg/dL (0.6-1.3); POTASSIUM 3.5 mMol/L (3.7-5.1)
[2016-07-14 07:12] LABS: ALBUMIN 1.6 gm/dL (3.5-5.0); ANION GAP 13.5 (10.0-19.0); TOTAL BILIRUBIN 1.2 mg/dL (0.0-1.5); TOTAL PROTEIN 4.3 g/dL (6.0-8.4)
--- NOTE | 2016-07-14 18:49 | NUR ---
Significant Event: A/O. VSS on RA. Denies pain. Negative heart cath today. Venous groin site oozy today - site remains soft. R) radial site also WNL. Continues to feel too weak to get up so remains on bedrest. Follow up: possible OR with Dr Alvarado on Saturday??
--- NOTE | 2016-07-15 04:11 | NUR ---
Significant Event: Patient is alert/oriented x3. SBP's were 80-90's early in the evening, otherwise he's been 110's. Other vital signs stable. On room air. Denies any pain. Right groin site dressing was saturated at beginning of shift; manual pressure held for 5 minutes, at which point no oozing was noted. New gauze and tegaderm applied. Site has been soft, non-tender, and CSM WNL throughout the night. Right radial site is covered with bandaid and coban, site is soft and non-tender, CSM WNL. Patient voiding per urinal and uses bedpan as needed. Cannot bear weight at this time due to spinal stenosis. Reports tingling to bilateral feet due to neuropathy. Follow up: Possible surgery on Saturday.
[2016-07-15 06:29] LABS: MCH 31.8 pg (27.0-34.0); MCHC 33.3 gm/dL (32.0-36.5); MCV 95.5 fl (83.0-98.0); MPV 10.3 fl (9.4-12.4); PLATELET COUNT 128 K/uL (150-450); RBC 3.14 M/uL (3.50-5.50); RDW-CV 16.1 % (11.9-14.6); WBC 10.5 K/uL (4.0-11.0)
[2016-07-15 06:41] LABS: ALBUMIN 1.7 gm/dL (3.5-5.0); ANION GAP 12.7 (10.0-19.0); CALCIUM 7.9 mg/dL (8.5-10.5); CREATININE 1.2 mg/dL (0.6-1.3); PHOSPHORUS 2.4 mg/dL (2.5-4.9); POTASSIUM 3.7 mMol/L (3.7-5.1)
[2016-07-15 07:01] LABS: LYMPHOCYTE # 0.6 K/uL (0.8-4.0); LYMPHOCYTE % 6 %; MONOCYTE # 0.6 K/uL (0.0-1.0); SEGMENTED NEUTROPHIL % 86 %
--- NOTE | 2016-07-15 14:54 | NUR ---
Significant Event: A/O. VSS on RA. Denies pain. reposition side to side. Cath sites remain WNL. BM x2 today. Follow up: possible OR with Dr Alvarado tomorrow.
[2016-07-16 04:17] LABS: INR - (THERAPEUTIC) 0.99 (0.92-1.07); PROTIME 10.4 SECONDS (9.8-11.4)
[2016-07-16 04:24] LABS: ANION GAP 12.5 (10.0-19.0); CALCIUM 7.8 mg/dL (8.5-10.5); CREATININE 1.2 mg/dL (0.6-1.3); PHOSPHORUS 2.6 mg/dL (2.5-4.9); POTASSIUM 3.5 mMol/L (3.7-5.1)
[2016-07-16 04:27] LABS: ALBUMIN 1.6 gm/dL (3.5-5.0)
--- NOTE | 2016-07-16 04:35 | NUR ---
Significant Event: Patient alert and oriented x3. SBP 110-135. All other vital signs stable. On RA. Blood sugar at HS was 324. Was treated with Novolog per protocal and Levamir per orders. Dr. Alvarado saw in the evening. Orders for back surgery tomorrow afternoon. Will be NPO after breakfast. Dr. Alvarado will visit with family before surgery. No complaints of pain. Bilateral tingling to lower extremities continues. Very little movement to lower extremites. Both PIVs to right arm saline locked. Repositioned frequently. Calm and cooperative with all cares. Follow up: Back surgery today. NPO after breakfast.
--- NOTE | 2016-07-16 09:48 | NUR ---
[facility] note: 0930 Consult received in [facility], upon review of patient's chart it is noted to have A1C of 9.3 % upon admission. As per chart patient is going for back surgery today, will check with patient/family later in week to assess educational needs. Current hospital medication of diabetes is noted as: Levemir 5 units Novolog aggressive sliding scale but on Med Recon, there is no diabetes medications listed.
--- NOTE | 2016-07-16 17:19 | NUR ---
Patient alert and oriented X 3. Room air. SBP 130 and 128. HR 80's and 90's. Patient was bedrest before surgery. ACHS accu check. 76 and 111, no correction needed. Equal moderate strength bilateral arms. Bilateral leg strength weak. Tingling to bilateral feet, neuroplathy for several years. Edema to hands, legs, ankles and feet. Right chest-biopsy site. Bilateral groins slightly red. Right anterior wrist bruise. Left lower arm, slightly red and bruised from an IV infiltration. Patient is pleasant and cooperative with cares.
[2016-07-16 19:23] LABS: CREATININE 1.3 mg/dL (0.6-1.3); MAGNESIUM 1.9 mg/dL (1.8-2.6); PHOSPHORUS 4.4 mg/dL (2.5-4.9)
[2016-07-16 19:28] LABS: ALBUMIN 1.5 gm/dL (3.5-5.0); ANION GAP 13.7 (10.0-19.0); CALCIUM 7.2 mg/dL (8.5-10.5); POTASSIUM 4.7 mMol/L (3.7-5.1)
--- NOTE | 2016-07-17 01:26 | NUR ---
Recieved patient from PACU @ 2109 from [facility]. Vitals upon arrival to PCU were 98.1 temp, 134/63 temp, 92% sat on 3L, and 24 resps.
--- NOTE | 2016-07-17 05:19 | NUR ---
Significant Event: A/O x3. Drowsy at arrival to PCU. Became more alert during the night. CSM present in bilat legs. Pt stated he "feels so much better already". SBP 110-130s. HR 90-110s. 3-4++ edema bilat upper and lower extremities. Childs w/ 700 uop. NS running @100/hr, Dopamine gtt @ 4/hr. Center lower back w/ dressing covering surgical site, c/d/i. Follow up: Continue to monitor per plan of care.
[2016-07-17 05:42] LABS: ALBUMIN 2.4 gm/dL (3.5-5.0); ANION GAP 14.1 (10.0-19.0); CREATININE 1.4 mg/dL (0.6-1.3); PHOSPHORUS 4.2 mg/dL (2.5-4.9); POTASSIUM 4.1 mMol/L (3.7-5.1)
[2016-07-17 05:44] LABS: CALCIUM 7.3 mg/dL (8.5-10.5)
--- NOTE | 2016-07-17 11:47 | NUR ---
[facility] note: 1000 Spoke with patient briefly regarding A1C of 9.3 % and what that means. Patient states he has never been told that he has diabetes, at age of 85 years, patient is still very active and reports even still working. As per Medication Reconcilation, he has no home medications listed for diabetes, and denies family history that he knows of. Patient is on steriods and during this hospitilization patient is given Levemir 5 units daily and aggressive sliding scale. We discussed affects of steriods and physcial stress on blood sugars, will continue to follow to assess educational needs and what recommendations for home medications may be. Provided Diabetes management booklet and Diabetes Assessment form, patient states that his spouse should be coming soon, and agrees to have her assist him in completing.
--- NOTE | 2016-07-17 13:20 | NUR ---
A - PT SCREENED D/T LOS. BACK SURGERY YESTERDAY. GLU 203, BUN/HOSE TESTER 46/1.4, ALB 2.4. MEDS REIVEWED. PT W/ 2-3+ BUE AND 3-4+ BLE EDEMA. DIET: REGULAR W/ INTAKES 50-100%. D - AT RISK W/ INCREASED NUTRIENT NEEDS R/T RECENT SURGERY AND ADVANCED AGE. I - GOAL: CONT 50-100% INTAKE UNTIL DIMISSAL. M/E - 1) WILL OFFER GLUCERNA BID TO INCREASE NUTRIENT ALLOWANCE AND MONITOR ORAL INTAKE. 2) F/U IN 2-4 DAYS.
[2016-07-17 13:40] LABS: ALBUMIN 2.5 gm/dL (3.5-5.0); CREATININE 1.7 mg/dL (0.6-1.3); PHOSPHORUS 3.7 mg/dL (2.5-4.9); POTASSIUM 4.2 mMol/L (3.7-5.1)
[2016-07-17 13:45] LABS: ANION GAP 16.2 (10.0-19.0); CALCIUM 7.2 mg/dL (8.5-10.5)
--- NOTE | 2016-07-17 17:07 | NUR ---
Significant Event: A/O X3. DOPAMINE GTT DC'D @ 1215. ALBUMIN 25 GM GIVEN X1. BUMEX 2 MG IV X1. ZAROXALYN 5 MG PO X1 GIVEN. ANTONIO CATHETER WITH 700 ML UOP. SBP 100'S-120'S. WEANED TO ROOM AIR. C/O PAIN TO BACK, PERCOCET 1 TAB GIVEN X2, LAST @ 1615, MANAGES PAIN WELL. PIVOT TRANSFERS WITH HEAVY 2 ASSIST, GB AND WALKER. LARGE BM THIS AM. NEED HEMATEST X3. HGB 6.1, CURRENTLY TRANSFUSING 1 UNIT OF PRBC. IV TO RIGHT AC SL'D. BLOOD TRANSFUSING TO RIGHT WRIST IV. CONTINUES TO HAVE 3-4+ EDEMA TO EXTREMITIES. Follow up: RENAL, MG AND HGB @ 1800, CALL RESULTS TO DR. MA.
[2016-07-17 18:28] LABS: ALBUMIN 2.6 gm/dL (3.5-5.0); ANION GAP 14.2 (10.0-19.0); CREATININE 1.6 mg/dL (0.6-1.3); POTASSIUM 4.2 mMol/L (3.7-5.1)
[2016-07-17 18:32] LABS: CALCIUM 7.1 mg/dL (8.5-10.5)
[2016-07-18 04:40] LABS: ALBUMIN 2.3 gm/dL (3.5-5.0); ANION GAP 13.1 (10.0-19.0); CREATININE 1.9 mg/dL (0.6-1.3); MAGNESIUM 2.1 mg/dL (1.8-2.6); PHOSPHORUS 4.2 mg/dL (2.5-4.9); POTASSIUM 4.1 mMol/L (3.7-5.1)
[2016-07-18 04:46] LABS: ALBUMIN 2.4 gm/dL (3.5-5.0); TOTAL BILIRUBIN 1.1 mg/dL (0.0-1.5)
[2016-07-18 04:48] LABS: CALCIUM 7.4 mg/dL (8.5-10.5)
[2016-07-18 04:49] LABS: TOTAL PROTEIN 4.6 g/dL (6.0-8.4)
--- NOTE | 2016-07-18 04:56 | NUR ---
Significant Event:VSS. RA.DRESSING IS CDI TO BACK AREA. PT ABLE TO MOVE SOME IN BED WITH TURNING. C/O PAIN, PRN PAIN MED GIVEN. 1 U PRBC GIVEN THIS SHIFT. ANTONIO INTACT,ADEQUATE UOP. COUGH IS NON-PRODUCTIVE. Follow up:CONT WITH PLAN OF CARE
[2016-07-18 11:34] LABS: BILIRUBIN URINE NEGATIVE (NEGATIVE); BLOOD URINE 250 /UL (NEGATIVE); COLOR URINE YELLOW (YELLOW); GLUCOSE URINE NEGATIVE (NEGATIVE); KETONE URINE NEGATIVE (NEGATIVE); LEUKOCYTES URINE 25 /UL (NEGATIVE); NITRITE URINE NEGATIVE (NEGATIVE); PROTEIN URINE 30 mg/dL (NEGATIVE); SPEC GRAVITY URINE 1.015 (1.003-1.035); TURBIDITY URINE CLEAR (CLEAR); UROBILINOGEN URINE NORMAL (NORMAL)
[2016-07-18 11:43] LABS: AMORPHOUS URINE 1+ (NEGATIVE); BACTERIA URINE NEGATIVE (NEGATIVE); EPITHELIAL URINE RARE #/HPF (NEGATIVE); MUCUS URINE 1+ (NEGATIVE); RBC URINE FULL FIELD #/HPF (NEGATIVE); WBC URINE 20-50 #/HPF (NEGATIVE)
--- NOTE | 2016-07-18 11:46 | NUR ---
Diabetes Consult: Patient plans to be discharged to home today. Patient was taking Levemir at home and reports with his medicare the pen costs him $135 a month. Patient has been receiving Novolog prandial doses while hospitalized to control blood sugars and will need to continue this upon discharge. The patient reports he does not believe he will be able to afford another insulin. Unfortunatley, vouchers for Humalog cannot be used it patient's have medicare. Phone call placed with message left for [facility] for Dr. Rahman, requesting Novolog or Humalog sample on discharge. The patient was has received medication assistance from [employer] in the past. The patient's reports that a [facility] financial services representative is completing documentation for the patient to receive insulins. Discussed with the patient Novolog action time and timing of injection to meals. He was encouraged to check blood sugar three times daily and when feeling symptoms of a low blood sugar. The patient was given information on how to obtain a more affordable reli-on glucometer and test strips OTC. Hypoglycemic protocol was reviewed with the patient. The patient denies any further questions or concerns. Continue to wait to touch base with Family Practice and will call the patient's , when I hear there is a sample the patient can obtain.
--- NOTE | 2016-07-18 11:57 | NUR ---
Diabetes consult: Patient is being taken by wheelchair to imaging at this time. Will attempt to visit later today.
--- NOTE | 2016-07-18 12:30 | NUR ---
Spoke with patient regarding discharge plans and need for therapies and strengthening before going home. He agrees he is not strong enough to go home. Talked about options for skilled care in [place]. He prefers to not go to [place]. He asks about options at here. Told him we have Inpt rehab and Dr. Astorga were need to assess him. He is uncertain is he has seen Dr. Astorga or not. Told him for inpt rehab have to be able to participate in 3 hours of therapy a day. He asks about [facility] as he has a sister there. Told him that is an option. Told him will see if Dr. Astorga assessment has been ordered and place him on their waiting list if it has. Will also make referral to Kae at [facility]. Will follow.
--- NOTE | 2016-07-18 17:27 | NUR ---
Significant Event: A/O X3. UP WITH HEAVY 2 ASSIST, GB AND WALKER, PIVOT TRANSFER. SL TO RIGHT WRIST AND AC. C/O PAIN TO BACK, NORCO 1 TAB GIVEN X2. ANTONIO CATHETER PATENT WITH 775 ML UOP. TOTAL OF 4 MG BUMEX IV GIVEN. DRESSING TO LUMBAR BACK C/D/I. CT OF ABDOMEN AND PELVIS DONE TODAY. 1200 ML FLUID RESTRICTION ADDED. Follow up: NEED HEMATEST X3. CYCLOSPORIN LEVEL TOMORROW AM (AT 0830) 30 MINUTES BEFORE GIVING MORNING DOSE DAILY STANDING WEIGHT NEEDED
--- NOTE | 2016-07-19 05:03 | NUR ---
Significant Event:VSS. RA. DRESSING TO MID BACK IS CDI. MARISELA PATENT. VERY WEAK. MAX asst x2.to stand pivot. DYSPNEIC W/MINIMAL EXERTION AND SOB.PT C/O PAIN TO BACK WITH MOBILITY AND MOVEMENT. Follow up:CONT W PLAN OF CARE
[2016-07-19 05:08] LABS: ALBUMIN 2.3 gm/dL (3.5-5.0); ANION GAP 13.3 (10.0-19.0); CREATININE 2.4 mg/dL (0.6-1.3); MAGNESIUM 2.1 mg/dL (1.8-2.6); PHOSPHORUS 3.9 mg/dL (2.5-4.9); POTASSIUM 4.3 mMol/L (3.7-5.1)
[2016-07-19 15:37] LABS: ALBUMIN 2.3 gm/dL (3.5-5.0); ANION GAP 15.6 (10.0-19.0); CREATININE 2.5 mg/dL (0.6-1.3); MAGNESIUM 2.1 mg/dL (1.8-2.6); PHOSPHORUS 3.5 mg/dL (2.5-4.9); POTASSIUM 4.6 mMol/L (3.7-5.1)
--- NOTE | 2016-07-19 16:40 | NUR ---
Significant Event: pt up to chair 2 heavy, stood up. Amadeo has good uop. NOrco for back pain. Pt had gaggy on dry omelet this am, coughs and vomits, has hiatal hernia. Pt coughs on/off today with thick sputum. 02 ra. HR up to 130s this am, dig iv given and iv lopressor which helps to keep hr 100s mostly. Labs done at [address] Aranda. Albumin iv x4 doses ordered. Follow up:
--- NOTE | 2016-07-19 17:42 | NUR ---
Dr. Trinidad assessed today and patient on [facility] waiting list. Kae from [facility] came and assessed patient and they will probably have beds next week. They have his sister and are willing to consider him if he wants to come. They will need to reassess his medications when closer to discharge. Will follow.
--- NOTE | 2016-07-20 04:28 | NUR ---
Patient A/Ox3. VSS on 1L. Use lift to get patient back to bed, unable to pivot. Lungs slightly course. Bowel sounds present. IV to Rt forarm saline locked. Albumin x2. [place] x3 last dose 0430. Dressing to lower back CDI. Childs 825ml out.
[2016-07-20 06:18] LABS: ALBUMIN 2.7 gm/dL (3.5-5.0); ANION GAP 12.5 (10.0-19.0); CREATININE 2.5 mg/dL (0.6-1.3); MAGNESIUM 2.3 mg/dL (1.8-2.6); PHOSPHORUS 3.7 mg/dL (2.5-4.9); POTASSIUM 4.5 mMol/L (3.7-5.1)
[2016-07-20 07:53] LABS: BASOPHIL % 0.1 %; EOSINOPHIL # 0.1 K/uL (0.0-0.5); EOSINOPHIL % 0.6 %; HEMATOCRIT 21.8 % (33.0-50.0); HEMOGLOBIN 7.2 g/dL (11.0-16.0); IMMATURE GRANULOCYTE # 0.1 K/uL (0.0-0.3); IMMATURE GRANULOCYTE % 0.7 %; LYMPHOCYTE # 0.7 K/uL (0.8-4.0); LYMPHOCYTE % 7.6 %; MCH 30.6 pg (27.0-34.0); MCV 92.8 fl (83.0-98.0); MONOCYTE # 0.3 K/uL (0.0-1.0); MPV 10.2 fl (9.4-12.4); NEUTROPHIL # (ANC) 7.7 K/uL (1.4-9.0); NRBC % 0 /100WBC (0-0.00); PLATELET COUNT 114 K/uL (150-450); RBC 2.35 M/uL (3.50-5.50); WBC 8.7 K/uL (4.0-11.0)
--- NOTE | 2016-07-20 12:30 | NUR ---
Diabetes center note; 1100 Began some basic diabetes education and explained rational for proper control of blood sugars, A1C was 9.3 %. Currently on Levemir insulin, consider decreasing dose of levemir due to FBS low for past 2 days. Educated patient on signs and symptoms of low blood sugars and treatment of same, patient states that this a.m. he didn't have symptoms of low. Explained treatment of elevated blood sugar, and patient states that he thinks that his spouse will be able to give him insulin injections if he is going to have to take insulin at home. Spouse is not available today. As per patient request for spouse to be present for blood glucose monitor teaching and other diabetes education, we will wait until next week as patient states he was told today that he will probably not go home, or go to nursing facility ([facility]) for a least one week. 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
--- NOTE | 2016-07-20 16:14 | NUR ---
A-NUTRITION F/U LABS: NA 142, K+ 4.5, GLU 71, BUN 77, JOB PLACEMENT SPECIALIST 2.5, ALB 2.7. ACCUCHECKS 60-264 DIET RX: CONSISTENT CARB W/1200 ML FLUID RESTRICTION. PO INTAKE 75-100% FOR THE MOST PART. VISITED W/PT RE: GLUCERNA. PT REPORTS THAT HE LIKES IT AND IS DRINKING IT. EST NUTR NEEDS: 7708-3497 KCALS (20-25 KCALS/KG) AND 85-112 GM PROTEIN (1.5-2.0 GM/KG IBW). D-REEVALUATED AT NO NUTRITION RISK W/ADEQUATE ORAL INTAKE; NO NUTRITIN DX IDENTIFIED I-CONTINUE GLUCERNA BID TO MAINTAIN PT'S NUTRITION STATUS M/E-WILL ASSIST NEEDED
--- NOTE | 2016-07-20 16:59 | NUR ---
Significant event: A&Ox3. HR 80-100's. Afebrile. On 1 litter of oxygen currently. SBP 100-110's. Heart murmur, no dizziness. Hgb dropped today to 7.0. 1 unit of PRBC given. New IV to L) hand per flight, lost IV to R) FA due to leaking. Protonix gtt at 10ml/hr. GI was consulted, patient is going to have an EGD tomorrow, will hold tonights dose of levemir, consents have been signed. Bowel sounds active, passing gas, no stool today, abdomen soft. Lungs are slightly coarse, but clear with cough, IS & FV every hour when awake. Will have labs at 1800, call to Dr. Aranda. Had 850 ml UOP today, tom catheter in place. BG today has been low 56, 62, correcting to 80-90's, with juice and glucose tabs. Levemir was reduced for HS, but again do not give tonight due to EGD. Follow Up: Continue current POC, watch BG.
[2016-07-20 18:21] LABS: HEMATOCRIT 25.8 % (33.0-50.0); HEMOGLOBIN 8.6 g/dL (11.0-16.0)
[2016-07-20 18:36] LABS: ALBUMIN 2.9 gm/dL (3.5-5.0); ANION GAP 14.5 (10.0-19.0); CALCIUM 8.3 mg/dL (8.5-10.5); CREATININE 2.5 mg/dL (0.6-1.3); MAGNESIUM 2.4 mg/dL (1.8-2.6); PHOSPHORUS 3.9 mg/dL (2.5-4.9); POTASSIUM 4.5 mMol/L (3.7-5.1)
--- NOTE | 2016-07-21 04:06 | NUR ---
Patient A/Ox3. VSS on RA. 2-3 assist with walker, lift. IV to LT hand, protonix gtt at 10ml/hr. NPO for EGD this am. Permits sign and on front of chart. Lungs slight course with productive cough. Bowel sounds present. Childs 750ml out. Pain to back norco x3. Back dressing CDI. Neuro okay.
[2016-07-21 06:34] LABS: HEMATOCRIT 27.2 % (33.0-50.0); HEMOGLOBIN 9.1 g/dL (11.0-16.0)
[2016-07-21 06:52] LABS: ALBUMIN 2.6 gm/dL (3.5-5.0); ANION GAP 12.5 (10.0-19.0); CALCIUM 8.2 mg/dL (8.5-10.5); CREATININE 2.5 mg/dL (0.6-1.3); MAGNESIUM 2.3 mg/dL (1.8-2.6); PHOSPHORUS 3.1 mg/dL (2.5-4.9); POTASSIUM 4.5 mMol/L (3.7-5.1)
--- NOTE | 2016-07-21 13:54 | NUR ---
PT A/OX3, NO FOCAL DEFICITS, MOVES ALL EXT EQUALLY, EQUAL STRENGTH T/O. BACK DRSG C/D/I; INTEG WITH SCATTERED ABRASIONS AND ECCHYMOSIS. EGD THIS AM SHOWING ESOPHAGEAL ULCERATIONS, BUT WILL CONTINUE TO MONITOR AND OK WITH SURG SOFT DIET; NO C/O N/V/D, NO BM OR FLATUS NOTED THIS SHIFT, WITH BS HYPO AND NOW NORMOACTIVE. ANTONIO WITH ADEQ CLEAR YELLOW UOP, WITH ADEQ ORAL INTAKE. L) FA PIV WITH PROTONIX GTT INFUSING TO CONTINUE FOR NOW. VSS, AFEBRILE, PULSES 1+ DISTALLY WITH GEN DEPENDENT 1+ EDEMA. LS SLC AT TIMES, 1LNC POST-PROCEDURE WITH SATS LOW TO MID 90'S AND OCCASSIONALLY PRODUCTIVE WITH CLEAR THICK SECRETIONS.
[2016-07-22 06:41] LABS: EOSINOPHIL # 0.1 K/uL (0.0-0.5); EOSINOPHIL % 0.6 %; HEMOGLOBIN 9.5 g/dL (11.0-16.0); IMMATURE GRANULOCYTE # 0.1 K/uL (0.0-0.3); LYMPHOCYTE # 0.7 K/uL (0.8-4.0); LYMPHOCYTE % 6.4 %; MCHC 32.8 gm/dL (32.0-36.5); MCV 92.9 fl (83.0-98.0); MONOCYTE # 0.3 K/uL (0.0-1.0); MONOCYTE % 2.7 %; NEUTROPHIL # (ANC) 9.1 K/uL (1.4-9.0); NEUTROPHIL % 89.3 %; NRBC % 0 /100WBC (0-0.00); RDW-CV 18.9 % (11.9-14.6); WBC 10.1 K/uL (4.0-11.0)
[2016-07-22 06:42] LABS: MCH 30.4 pg (27.0-34.0); PLATELET COUNT 146 K/uL (150-450); RBC 3.12 M/uL (3.50-5.50)
[2016-07-22 06:53] LABS: ANION GAP 9.7 (10.0-19.0); CALCIUM 8.5 mg/dL (8.5-10.5); CREATININE 2.3 mg/dL (0.6-1.3); MAGNESIUM 2.3 mg/dL (1.8-2.6); POTASSIUM 4.7 mMol/L (3.7-5.1)
--- NOTE | 2016-07-22 07:49 | NUR ---
SIGNIFICANT EVENT: Patient alert, oriented most of shift - confused at times after sleeping. VSS on 1L. ACHS accucheck - carb count with meals. PIV to L) hand has protonix drip infusing at 10 mL/hr. Hemet[place] x3 needed - no BM this shift. 1+ edema to bilateral upper extremities. 2 norco given at HS - approx 2130. Stage IV CKD. Dressing to back is C/D/I- laminectomy site. Childs had 900 mL out, 100 mL IV fluids, 300 PO. Q2h turn. Daily weight. Pleasant and cooperative with cares.
--- NOTE | 2016-07-22 19:15 | NUR ---
Significant Event:A/Ox3. VSS on 1L. Patient has vague complaints of just not feeling well today and refused to get up to the chair. Family visited most of the day. Repositioned q2h. [place] x1 tab with relief noted. 2mg IV bumex given with a total of 1250 output. No BM noted. Protonix gtt continued infusing to L)hand with no complications. Follow up:Continue per plan of care.
[2016-07-23 03:25] LABS: HEMATOCRIT 31.3 % (33.0-50.0); HEMOGLOBIN 10.2 g/dL (11.0-16.0); MCH 30.5 pg (27.0-34.0); MCHC 32.6 gm/dL (32.0-36.5); MCV 93.7 fl (83.0-98.0); MPV 10.1 fl (9.4-12.4); RBC 3.34 M/uL (3.50-5.50); RDW-CV 18.6 % (11.9-14.6); WBC 10.4 K/uL (4.0-11.0)
[2016-07-23 03:29] LABS: PLATELET COUNT 176 K/uL (150-450)
[2016-07-23 03:44] LABS: ANION GAP 14.9 (10.0-19.0); CALCIUM 8.6 mg/dL (8.5-10.5); CREATININE 2.4 mg/dL (0.6-1.3); MAGNESIUM 2.2 mg/dL (1.8-2.6); POTASSIUM 4.9 mMol/L (3.7-5.1)
[2016-07-23 04:36] LABS: ABSOLUTE NEUTROPHIL CT (ANC) 9.7 K/uL (1.4-9.0); BANDED NEUTROPHIL # 0.6 K/uL (0.0-0.1); BANDED NEUTROPHILS % 6 %; LYMPHOCYTE # 0.3 K/uL (0.8-4.0); LYMPHOCYTE % 3 %; MONOCYTE # 0.3 K/uL (0.0-1.0); SEGMENTED NEUTROPHIL # 9.1 K/uL (1.4-9.0); SEGMENTED NEUTROPHIL % 87 %
--- NOTE | 2016-07-23 05:35 | NUR ---
SIGNIFICANT EVENT: Patient alert, oriented. ADA diet, fluid restrict DC'd. Hemetest stools x3. ACHS accuchecks with carb count coverage after meals. Tachycardic this shift (96 to 102), other VSS on 1L. Several instances of emesis throughout shift - Zofran given at 1930 with no relief. NG placed at approx 2345, intermittent emesis has continued. NG was to low intermittent suction, increased to moderate intermittent - 450 out so far to canister. Soap and water enema at approx 0005 and fleets at approx 0400, Reglan given at about 0400 also. 925 out of tom. HS PO meds and levemir held. HS BG was 87. Full lift.
--- NOTE | 2016-07-23 12:25 | NUR ---
Message from Kae at [facility]. Called and updated her on patient and they will reassess when he is closer to discharge. Patient also remains on [facility] waiting list, but not appropriate at this time. Will follow.
--- NOTE | 2016-07-23 15:24 | NUR ---
Diabetes Center note: Spouse is not present at the time of this visit. Patient was provided with a blood glucose meter last week, but patient wants spouse to be present for teaching when we do demonstration. At this time patient is planning to go to [facility] for strengthening before he is to return home. We will plan for education at an appropriate time with spouse present.
[2016-07-23 19:18] LABS: CALCIUM 8.1 mg/dL (8.5-10.5); MAGNESIUM 2.4 mg/dL (1.8-2.6)
[2016-07-24 04:30] LABS: HEMATOCRIT 26.3 % (33.0-50.0); HEMOGLOBIN 8.6 g/dL (11.0-16.0); MCH 30.6 pg (27.0-34.0); MCHC 32.7 gm/dL (32.0-36.5); MCV 93.6 fl (83.0-98.0); MPV 9.9 fl (9.4-12.4); PLATELET COUNT 147 K/uL (150-450); RBC 2.81 M/uL (3.50-5.50); RDW-CV 18.2 % (11.9-14.6); WBC 5.8 K/uL (4.0-11.0)
[2016-07-24 04:45] LABS: ANION GAP 15.5 (10.0-19.0); CALCIUM 7.8 mg/dL (8.5-10.5); CREATININE 2.9 mg/dL (0.6-1.3); PHOSPHORUS 4.5 mg/dL (2.5-4.9); POTASSIUM 4.5 mMol/L (3.7-5.1)
[2016-07-24 04:54] LABS: MAGNESIUM 2.7 mg/dL (1.8-2.6)
--- NOTE | 2016-07-24 05:22 | NUR ---
Significant Event:A/Ox3 very drowsy at start of shift but more alert throughout the night. VSS on 1L. Afebrile. Edema to arms and legs 2-3+. IVF continue with NS at 100ml/h and D5 1/2NS at 50ml/h. UOP better with 500 output, also starting to lighten in color in tubing. Around 0200 I found that patient had pulled the NG tube out. Notified and ok to keep out until re-evaluated in the morning following repeat KUB. Held 0500 dose of metoprolol d/t bp. Lung sounds course with productive cough. Bowel sounds active x4 with 1 moderate bm. Follow up:Continue to monitor.
[2016-07-24 05:32] LABS: LYMPHOCYTE # 0.3 K/uL (0.8-4.0); LYMPHOCYTE % 5 %; MONOCYTE # 0.1 K/uL (0.0-1.0); SEGMENTED NEUTROPHIL # 4.3 K/uL (1.4-9.0); SEGMENTED NEUTROPHIL % 74 %
[2016-07-24 05:33] LABS: ABSOLUTE NEUTROPHIL CT (ANC) 5.5 K/uL (1.4-9.0); BANDED NEUTROPHIL # 1.2 K/uL (0.0-0.1); BANDED NEUTROPHILS % 20 %
--- NOTE | 2016-07-24 14:29 | NUR ---
Diabetes Center note: 1400 Diabetes Survival Skills checklist is only partially completed, the form is on the front of the patient's chart. Patient is sleeping when CDE was in room. No further Diabetes education has been provided at this time, spouse has not been present in room and as per care management note, the patient may be going to [facility] for strengthening after dismissal from hospital
[2016-07-24 16:08] LABS: BASOPHIL % 0.2 %; EOSINOPHIL % 0.3 %; HEMATOCRIT 28.1 % (33.0-50.0); IMMATURE GRANULOCYTE # 0.1 K/uL (0.0-0.3); IMMATURE GRANULOCYTE % 0.8 %; LYMPHOCYTE # 0.7 K/uL (0.8-4.0); MCH 30.1 pg (27.0-34.0); MONOCYTE # 0.4 K/uL (0.0-1.0); MONOCYTE % 5.8 %; MPV 10.4 fl (9.4-12.4); NEUTROPHIL # (ANC) 5.5 K/uL (1.4-9.0); NEUTROPHIL % 82.9 %; NRBC % 0 /100WBC (0-0.00); RBC 2.99 M/uL (3.50-5.50); RDW-CV 18.3 % (11.9-14.6); WBC 6.6 K/uL (4.0-11.0)
[2016-07-24 16:09] LABS: PLATELET COUNT 190 K/uL (150-450)
[2016-07-24 16:21] LABS: ALBUMIN 2.1 gm/dL (3.5-5.0); CALCIUM 7.9 mg/dL (8.5-10.5); PHOSPHORUS 3.4 mg/dL (2.5-4.9); POTASSIUM 4.3 mMol/L (3.7-5.1)
[2016-07-24 16:24] LABS: ANION GAP 15.3 (10.0-19.0)
--- NOTE | 2016-07-24 16:48 | NUR ---
Significant Event: A/O X3. UP WALKING WITH PT. ANTONIO CATH PATENT. AFEBRILE. HR SINUS TACH 112. SBP 100-119. SATS 92% ON ROOM AIR. HAS HEART MURMUR. LUNGS WITH CRACKLES THIS A.M., BUT SOUNDING BETTER THIS AFTERNOON. CLEAR LIQUIDS TAKEN. THIS AFTERNOON, WITH EMESIS X 2= 100 ML TOTAL. TOLD TO SLOW DOWN ON LIQUIDS FOR NOW. CRET. 2.9 GFR 21. HAS A PROD. PHELGM COUGH. Follow up: CONT. TO MONITER POST LUMBAR SURGICAL INTERVENTION. MONITER GASTROINTESTINAL STATUS. MONITER FLUID STATUS.
--- NOTE | 2016-07-25 05:59 | NUR ---
Significant Event: Patient alert and oriented. Repositioned in bed as patient would allow. VSS, patient placed on oxygen for sats 88% on room air. Childs patent with 750 ml urine out this shift. Nausea and vomiting continues. Physician updated and new orders recieved. KUB ordered for 0800 this am. NPO except for medications. Compezine IM given. Pleasant and cooperative with cares. Follow up: continue to monitor
[2016-07-25 06:00] LABS: BASOPHIL % 0.2 %; EOSINOPHIL % 0.5 %; HEMATOCRIT 29.4 % (33.0-50.0); HEMOGLOBIN 9.4 g/dL (11.0-16.0); IMMATURE GRANULOCYTE % 0.6 %; LYMPHOCYTE # 0.6 K/uL (0.8-4.0); LYMPHOCYTE % 8.8 %; MCH 30.1 pg (27.0-34.0); MCV 94.2 fl (83.0-98.0); MONOCYTE # 0.5 K/uL (0.0-1.0); MONOCYTE % 7.9 %; MPV 9.9 fl (9.4-12.4); NEUTROPHIL # (ANC) 5.2 K/uL (1.4-9.0); NRBC % 0 /100WBC (0-0.00); PLATELET COUNT 173 K/uL (150-450); RBC 3.12 M/uL (3.50-5.50); RDW-CV 18.3 % (11.9-14.6); WBC 6.3 K/uL (4.0-11.0)
[2016-07-25 06:19] LABS: ALBUMIN 2.2 gm/dL (3.5-5.0); CALCIUM 8.3 mg/dL (8.5-10.5); CREATININE 2.8 mg/dL (0.6-1.3); PHOSPHORUS 3.9 mg/dL (2.5-4.9)
--- NOTE | 2016-07-25 12:28 | NUR ---
A - NUTRITION FOLLOW-UP. QUESTIONING OF ILEUS. NG PLACED 07/22, PT PULLED OUT 07/24, OUTPUT 200-950ML BEFORE REMOVAL. HAD EMESIS 07/24, 100ML. KUB ORDERED. MD WANTS TO MONITOR ONE MORE DAY. LABS: GLU 119, BUN 88, CREA 2.8, ALB 2.2, MG 2.9, PRE-ALB 16, A1C 9.3%. NEW MEDS: COMPAZINE. DIET: NPO ORDERED TODAY. CL/FL 07/24. WAS ON CONSISTENT CARBS W/ GLUCERNA BID. INTAKE WAS 50-100% AND LIKES GLUCERNA BEFORE NPO ORDERED. PER MD NOTE IN CHART, MOD PROTEIN CALORIE MALNUTRITION, MIGHT NEED NOC TF ONCE ABLE TO START ORAL DIET. CAN BE NPO UP TO 3 DAYS DUE TO PREVIOUS GOOD APPETITE. EST NEEDS: [id number] KCAL, 85-112 GRAMS PROTEIN, FLUID NEEDS: 1ML/KCAL D - INADEQUATE ORAL INTAKE RELATED TO ALTERED GI FUNCTION EVIDENCED BY NPO/LIQUID DIET X2 DAYS. I - START NUTRITION SUPPORT VS ADVANCE DIET TOLERATED IN 2-3 DAYS. M/E - GOAL: TO MEET >75% OF PATIENT'S NEEDS VIA MOST APPROPRIATE ROUTE IN 2-3 DAYS.
--- NOTE | 2016-07-25 16:24 | NUR ---
AAO. Cooperative with cares. Stood at bedside with PT. Heavy 2 assist. Midline to NAE and LH w/D5 1/2NS @30ml/hr. Intermittent Albumin. IV Bumex. NPO w/ice only. Only PO med is Vfend per MD orders. VSS, afebrile, on 1liter O2. BS ac/hs; no coverage given. Left ankle fused; right plantar flexes, but no dorsiflexion yet. at bedside.
--- NOTE | 2016-07-26 03:07 | NUR ---
Significant Event: AAOx3, chronic tingling to hands and feet patient states. PERRLA 3mm brisk. UE moderately weaker with hand regulatory affairs coordinator strength, able to lift both extremities off of bed, 2-3+ generalized pitting edema. LLE unable to plantar/dorsiflex (patient's norm since plating ankle). Systolic 90-110's, HR 80-90's. L.S. slightly coarse with expiratory wheeze present on 1L via N.C. and humidified O2 d/t dried blood in nares, produces 750 at best with I.S. Bowel sounds active, abdomen soft, tenderness noted to LLQ, no episodes of nausea throughout shift. PIV L) hand SL'd. Mid-line to L) upper arm infusing D5 1/2NaCl at 50mL/hr and intermittent Albumin. Childs catheter draining fede urine, 1300 out this shift. Incontinent of bowel, 3 smears this shift. Accuchecks AC/HS, borderline hypoglycemia ranging 80-90's. NPO besides Cyclosporine and Vfend with ice chips. Turn Q2Hrs. Up 2PA pivot with walker/GB. Follow up: Neuro checks, monitor O2 demand and UOP. Re-insert NG tube if patient has N/V. Turn Q2Hr.
[2016-07-26 04:52] LABS: ALBUMIN 2.6 gm/dL (3.5-5.0); ANION GAP 14.3 (10.0-19.0); CALCIUM 7.7 mg/dL (8.5-10.5); CREATININE 2.3 mg/dL (0.6-1.3); POTASSIUM 3.3 mMol/L (3.7-5.1)
[2016-07-26 04:53] LABS: TOTAL BILIRUBIN 1.5 mg/dL (0.0-1.5); TOTAL PROTEIN 4.8 g/dL (6.0-8.4)
[2016-07-26 05:14] LABS: HEMATOCRIT 23.5 % (33.0-50.0); HEMOGLOBIN 7.6 g/dL (11.0-16.0); MCHC 32.3 gm/dL (32.0-36.5); MCV 92.9 fl (83.0-98.0); PLATELET COUNT 148 K/uL (150-450); RBC 2.53 M/uL (3.50-5.50); WBC 5.7 K/uL (4.0-11.0)
[2016-07-26 06:01] LABS: ABSOLUTE NEUTROPHIL CT (ANC) 4.6 K/uL (1.4-9.0); BANDED NEUTROPHIL # 0.9 K/uL (0.0-0.1); BANDED NEUTROPHILS % 16 %; LYMPHOCYTE % 18 %; SEGMENTED NEUTROPHIL # 3.7 K/uL (1.4-9.0); SEGMENTED NEUTROPHIL % 65 %
[2016-07-26 08:06] LABS: HEMATOCRIT 23.7 % (33.0-50.0); HEMOGLOBIN 7.7 g/dL (11.0-16.0); MCH 30.9 pg (27.0-34.0); MCHC 32.5 gm/dL (32.0-36.5); MCV 95.2 fl (83.0-98.0); MPV 10.3 fl (9.4-12.4); RBC 2.49 M/uL (3.50-5.50); RDW-CV 18.3 % (11.9-14.6); WBC 5.8 K/uL (4.0-11.0)
--- NOTE | 2016-07-26 12:30 | NUR ---
Spoke with patient and . Talked to her about inpt rehab vs skilled care and the criteria for both. He agrees he will not be ready for inpt rehab when ready for discharge. Told her referral made to [facility] and will update them when closer to discharge. She says his sister is at [facility] and likes it there. She agrees with him, that best to stay in [place] for skilled care. Will follow.
--- NOTE | 2016-07-26 17:17 | NUR ---
Significant Event: A/O x3, cooperative with cares. VSS, SBPs 110s, HRs 90s, oxygen currently at 2 liters. Roland held this shift. No c/o pain. 40 IV KCL given x1 today for a level of 3.3. Cl liq diet tolerated; no nausea or vomiting noted. BMs x2 this shift. PT/OT working with patient; stood multiple times in front of chair. Follow up:
--- NOTE | 2016-07-27 05:22 | NUR ---
A&O. Cooperative. VSS. Afebrile. O2 at 3 ltrs when sleeping as he drops down to high 80's/low 90's on 2. No c/o pain. PO meds held except for liquid cyclosporine and vfend. Childs patent- urine fede. 3 assist from chair to bed last noc - need to have a lift sling placed under him when hes in chair. Left upper arm midline and left hand IV- both SL. Hgb 7.6 this morning. Small BM last noc. Clear diet.
[2016-07-27 05:50] LABS: BASOPHIL % 0.3 %; EOSINOPHIL % 0.3 %; HEMATOCRIT 24.2 % (33.0-50.0); IMMATURE GRANULOCYTE # 0.1 K/uL (0.0-0.3); IMMATURE GRANULOCYTE % 1.1 %; LYMPHOCYTE # 0.5 K/uL (0.8-4.0); LYMPHOCYTE % 7.4 %; MCH 30.2 pg (27.0-34.0); MCHC 31.4 gm/dL (32.0-36.5); MONOCYTE # 0.3 K/uL (0.0-1.0); MONOCYTE % 3.8 %; MPV 9.9 fl (9.4-12.4); NEUTROPHIL # (ANC) 6.2 K/uL (1.4-9.0); NEUTROPHIL % 87.1 %; NRBC % 0 /100WBC (0-0.00); PLATELET COUNT 152 K/uL (150-450); RBC 2.52 M/uL (3.50-5.50); RDW-CV 18.3 % (11.9-14.6); WBC 7.1 K/uL (4.0-11.0)
[2016-07-27 05:57] LABS: HEMOGLOBIN 7.6 g/dL (11.0-16.0)
[2016-07-27 06:03] LABS: ANION GAP 14.5 (10.0-19.0); CALCIUM 8.5 mg/dL (8.5-10.5); CREATININE 2.1 mg/dL (0.6-1.3); POTASSIUM 3.5 mMol/L (3.7-5.1)
[2016-07-27 10:51] LABS: MAGNESIUM 2.3 mg/dL (1.8-2.6)
--- NOTE | 2016-07-27 11:24 | NUR ---
A-NUTRITION F/U (+)BM; (+)BS. NO N/V LABS: NA 146, K+ 3.5, GLU 108, BUN 69, CHEST PAINTING AND SEALING SUPERVISOR 2.1, ALB 2.6 MEDS: IV BUMEX ON 07/25; HELD ON 07/26 DIET RX: CLEAR LIQUIDS; TOLERATING WITHOUT DIFFICULTY EST NUTR NEEDS: [id number] KCALS AND 85-112 GM PROTEIN D-AT NUTRITION RISK W/INADEUQATE NUTRIENT INTAKE R/T ALTERED GI FXN AEB NPO, CLEAR LIQUIDS, INTAKE RECORDS. I-GLUCERNA TID TO START WHEN DIET ADVANCED FROM CLEAR LIQUIDS M/E-GOAL: PT WILL CONTINUE TO TOLERATE CLEAR LIQUIDS WITHOUT DIFFICULTY 1)F/U DIET RX, PO INTAKE, SUPPLEMENT, GI, AND POC IN 4-5 DAYS 2)ASSIST NEEDED
--- NOTE | 2016-07-27 18:55 | NUR ---
Significant Event: A/O x3, cooperative with cares. VSS, SBPs 110-140s, HRs 100-120s, oxygen at 3 liters. Patient currently in a-fib, doctor aware. Cardiology resumed following patient. Recieved 40 oral KCL for a level of 3.5. Childs patent with 1275 ml out this shift. Bedside spirometry completed today. AM dose of bumex given with PM dose held. Up to BS et chair with assist of 2 et walker; PT/OT working with patient Follow up:edema wear to FELISHA
--- NOTE | 2016-07-28 05:15 | NUR ---
A&O. Cooperative with cares. O2 at 3 ltrs. Childs patent- urine fede. PT/OT. Lift patient for nursing. BM x 2 this shift - one small, one medium. No c/o pain. Left upper arm midline. Left hand peripheral. Both SL. Clear diet. Albumin given x 2 this shift. Heparin SQ Q8H. Dr. Alvarado changed dressing last noc.
[2016-07-28 06:20] LABS: BASOPHIL % 0.1 %; EOSINOPHIL % 0.4 %; HEMATOCRIT 22.1 % (33.0-50.0); IMMATURE GRANULOCYTE # 0.1 K/uL (0.0-0.3); LYMPHOCYTE # 0.6 K/uL (0.8-4.0); LYMPHOCYTE % 8.7 %; MCH 30.8 pg (27.0-34.0); MCHC 32.6 gm/dL (32.0-36.5); MCV 94.4 fl (83.0-98.0); MONOCYTE # 0.3 K/uL (0.0-1.0); MONOCYTE % 3.8 %; MPV 9.9 fl (9.4-12.4); NEUTROPHIL # (ANC) 5.9 K/uL (1.4-9.0); NRBC % 0 /100WBC (0-0.00); PLATELET COUNT 142 K/uL (150-450); RBC 2.34 M/uL (3.50-5.50); RDW-CV 18.5 % (11.9-14.6); WBC 6.8 K/uL (4.0-11.0)
[2016-07-28 06:23] LABS: HEMOGLOBIN 7.2 g/dL (11.0-16.0)
[2016-07-28 06:29] LABS: CALCIUM 8.6 mg/dL (8.5-10.5); CREATININE 1.9 mg/dL (0.6-1.3)
[2016-07-28 06:34] LABS: ANION GAP 16.9 (10.0-19.0); POTASSIUM 2.9 mMol/L (3.7-5.1)
--- NOTE | 2016-07-28 19:04 | NUR ---
Significant Event: A/O x3, cooperative with cares. VSS, SBPs 120-140s, HRs 100-110s, oxygen at 4 liters. No c/o pain. Potassium level 2.9; recieved 40 mEq of KCL both IV et oral. Pulmonary consult for pleural effusions; Dr. Kaur up to see patient. Childs patent et draining dk yellow urine 1150 out this shift. Dangled at bedside with nursing staff today. Follow up: possible thoracentesis in AM; urine specimen needed.
[2016-07-29 02:55] LABS: EOSINOPHIL % 0.4 %; HEMATOCRIT 23.8 % (33.0-50.0); IMMATURE GRANULOCYTE # 0.1 K/uL (0.0-0.3); LYMPHOCYTE # 0.6 K/uL (0.8-4.0); LYMPHOCYTE % 9.2 %; MCV 94.1 fl (83.0-98.0); MONOCYTE # 0.3 K/uL (0.0-1.0); MONOCYTE % 4.3 %; NEUTROPHIL # (ANC) 5.9 K/uL (1.4-9.0); NEUTROPHIL % 85.1 %; NRBC % 0 /100WBC (0-0.00); RBC 2.53 M/uL (3.50-5.50); RDW-CV 18.6 % (11.9-14.6); WBC 6.9 K/uL (4.0-11.0)
[2016-07-29 02:58] LABS: HEMOGLOBIN 7.6 g/dL (11.0-16.0); MCHC 31.9 gm/dL (32.0-36.5); PLATELET COUNT 178 K/uL (150-450)
[2016-07-29 03:08] LABS: CALCIUM 8.7 mg/dL (8.5-10.5)
[2016-07-29 03:09] LABS: ANION GAP 14.9 (10.0-19.0); POTASSIUM 2.9 mMol/L (3.7-5.1)
--- NOTE | 2016-07-29 05:30 | NUR ---
A&O. Afebrile. SBPs 99-129. HR 95-102. 4 ltrs O2. Urine negative for legionella and strep. Hgb 7.6 - stable. Held 2300 dose of cardizem d/t BP- gave 0500 dose. Order to skip 0500 and 1300 dose of heparin for possible thoracentesis - chest xray this morning to determine if it will be done or not. Need sputum culture. Dressing to back CDI. Small BM this shift. Childs patent and draining yellow urine.
--- NOTE | 2016-07-29 17:32 | NUR ---
Significant Event: A/O x3, cooperative with cares. VSS, SBPs 100-120s, HRs 100-110s, oxygen at 3 liters. No c/o pain but did c/o of tenderness to abd upon palpation with 3rd assessment. 40 mEq of KCL given both oral et IV for a level of 2.9. Childs patent with 950 ml out this shift; no results from suppositories at this time. Upon initial assessment it was noted that patient was spitting up scant amounts of a thin yellow bile appearing liquid; doctors informed upon doing rounds. PT/OT attempted to get patient up today; sat patient up at edge of bed et patient's HR went up to 130-160s, patient c/o not feeling very well et had a small emesis of thin yellow liquid, approximately 50ml. Patient returned to bed et repositioned. Initial doses of abx given today. Follow up: sputum specimen needed for culture.
[2016-07-29 19:40] LABS: BASOPHIL % 0.3 %; EOSINOPHIL % 0.3 %; HEMOGLOBIN 9.6 g/dL (11.0-16.0); IMMATURE GRANULOCYTE # 0.3 K/uL (0.0-0.3); IMMATURE GRANULOCYTE % 2.3 %; LYMPHOCYTE # 2.2 K/uL (0.8-4.0); LYMPHOCYTE % 18.9 %; MCV 97.2 fl (83.0-98.0); MONOCYTE # 0.3 K/uL (0.0-1.0); NEUTROPHIL # (ANC) 8.7 K/uL (1.4-9.0); NEUTROPHIL % 75.2 %; NRBC % 0.3 /100WBC (0-0.00); WBC 11.5 K/uL (4.0-11.0)
[2016-07-29 19:41] LABS: HEMATOCRIT 31.1 % (33.0-50.0); MCHC 30.9 gm/dL (32.0-36.5); PLATELET COUNT 258 K/uL (150-450)
[2016-07-29 19:57] LABS: ALBUMIN 3.4 gm/dL (3.5-5.0); ANION GAP 18.7 (10.0-19.0); CALCIUM 9.1 mg/dL (8.5-10.5); CREATININE 2.5 mg/dL (0.6-1.3); POTASSIUM 3.7 mMol/L (3.7-5.1); TOTAL BILIRUBIN 2.3 mg/dL (0.0-1.5); TOTAL PROTEIN 6.1 g/dL (6.0-8.4)
--- NOTE | 2016-07-29 21:01 | NUR ---
Entered room at 1835 with day shift RN, Chandni Sim, do do bedside report. Patient alert and oriented, answering questions appropriately, denies pain, nausea. Patient's respiration rate 32, heart rate in 120's. Chandni called Dr. Givens with update on patient status. New orders received. Chandni called Respiratory Therapy to draw ABGs per MD order. Dr. Humphrey entered room to assess patient, followed shortly by Dr. Givens. MDs left room, Chandni attempted to place NG tube to patient's right nare. Patient began to vomit thin, yellow bile fluid. NG removed. Patient became nonresponsive. Dr. Givens re-entered room. Patient's HOB lowered and patient began vomiting copious amounts of above mentioned fluid. Patient turned to left lateral side. Copious amounts of liquid continued to pour out of patient's mouth and nose. Code Blue initiated at 1902. Refer to Code flowsheets. Patient stabilized and intubated, transferred to room 6214 at 1920.
--- NOTE | 2016-07-30 00:29 | NUR ---
Compassionate extubated at 2230. Cardiac time of 2250. Dr. Starkey and Dr. Kaur notified. Mortuary called. House called. [facility] called and was ruled out for [place]. [place] [facility] [place]
== END 2016-07-30 00:43 | disposition expired | DRG 515 ==
LOC: GMED 17:31 → GMSU 22:27 → GPCU 22:27 → G3N 07-16 18:45 → GPCU 07-16 21:58 → GICU 07-29 19:25
PROVIDERS: Emergency Medicine; Family Medicine; Internal Medicine; Internal Medicine Cardiovascular Disease; Internal Medicine Critical Care Medicine; Internal Medicine Nephrology; Nurse Practitioner; Nurse Practitioner Family; ADMIT Neurological Surgery
PROC: B246ZZZ Ultrasonography of Right and Left Heart (ICD-10-PCS; principal; 2016-07-13)
PROC: B2181ZZ Fluoroscopy of Left Internal Mammary Bypass Graft using Low Osmolar Contrast (ICD-10-PCS; 2016-07-14)
PROC: 4A023N8 Measurement of Cardiac Sampling and Pressure, Bilateral, Percutaneous Approach (ICD-10-PCS; 2016-07-14)
PROC: B2121ZZ Fluoroscopy of Single Coronary Artery Bypass Graft using Low Osmolar Contrast (ICD-10-PCS; 2016-07-14)
PROC: B2111ZZ Fluoroscopy of Multiple Coronary Arteries using Low Osmolar Contrast (ICD-10-PCS; 2016-07-14)
PROC: 01NB0ZZ Release Lumbar Nerve, Open Approach (ICD-10-PCS; 2016-07-16)
PROC: 30233N1 Transfusion of Nonautologous Red Blood Cells into Peripheral Vein, Percutaneous Approach (ICD-10-PCS; 2016-07-17)
PROC: 0DJ08ZZ Inspection of Upper Intestinal Tract, Via Natural or Artificial Opening Endoscopic (ICD-10-PCS; 2016-07-21)
PROC: 0BH17EZ Insertion of Endotracheal Airway into Trachea, Via Natural or Artificial Opening (ICD-10-PCS; 2016-07-30)
DX: M48.06 Spinal stenosis, lumbar region (principal); I21.4 Non-ST elevation (NSTEMI) myocardial infarction; B44.0 Invasive pulmonary aspergillosis; J96.01 Acute respiratory failure with hypoxia; J69.0 Pneumonitis due to inhalation of food and vomit; G82.20 Paraplegia, unspecified; M48.02 Spinal stenosis, cervical region; I50.33 Acute on chronic diastolic (congestive) heart failure; T81.19XA Other postprocedural shock, initial encounter; N17.9 Acute kidney failure, unspecified; E87.1 Hypo-osmolality and hyponatremia; D62 Acute posthemorrhagic anemia; K56.7 Ileus, unspecified; I13.0 Hypertensive heart and chronic kidney disease with heart failure and stage 1 through stage 4 chronic kidney disease, or unspecified chronic kidney disease; N26.9 Renal sclerosis, unspecified; E09.9 Drug or chemical induced diabetes mellitus without complications; E78.5 Hyperlipidemia, unspecified; E11.42 Type 2 diabetes mellitus with diabetic polyneuropathy; E11.65 Type 2 diabetes mellitus with hyperglycemia; N18.3 Chronic kidney disease, stage 3 (moderate); I25.10 Atherosclerotic heart disease of native coronary artery without angina pectoris; Z85.038 Personal history of other malignant neoplasm of large intestine; Z95.1 Presence of aortocoronary bypass graft; E87.6 Hypokalemia; E11.22 Type 2 diabetes mellitus with diabetic chronic kidney disease
CPT/HCPCS: C1751; C1760; C1769; C1894; C9113; J0690; J0780; J1040; J1160; J1265; J1644; J1720; J2020; J2185; J2250; J2270; J2370; J2405; J2765; J2795; J2920; J3010; J3480; J7030; J7040; J7050; J7060; J7120; J7502; J7512; P9016; P9045; P9047